=== PATIENT | male | born 1935 | race Caucasian/White ===

== ENCOUNTER 2024-11-25 11:49 | Emergency (ER) | payer OTHER, SELFPAY ==
[2024-11-25 11:50] VITALS: BP 168/98
--- NOTE | 2024-11-25 13:02 | ED.GENMED ---
History of Present Illness
General
Chief Complaint: Dental Problem
Source: patient and spouse
Exam Limitations: none
Time Seen by Provider: 11/25/24 12:52
History of Present Illness
History of Present Illness:
See MDM
Past History
Past History
ED Past Medical History: CAD, HTN, Hypercholesterolemia and [place]
ED Past Surgical History: Other (Melanoma removed)
Social History
Tobacco: Non-smoker
Alcohol: None
Drug: None
Personal:
Living: with family
Phy Exam
Physical Exam
Physical Exam:
See MDM
Course
Orders/Labs/Results
Orders:
Orders
11/25/24 13:00
Amoxicillin [Amoxil] 500 mg PO NOW STA
Ibuprofen [Motrin] 400 mg PO NOW STA
Oxycodone [Roxicodone] 5 mg PO NOW STA
Vital Signs
Initial and Last Documented VS:
Initial Vital Signs
Temp Pulse Resp BP Pulse Ox
97.6 F 82 16 168/98 97
11/25/24 11:50 11/25/24 11:50 11/25/24 11:50 11/25/24 11:50 11/25/24 11:50
Last Documented Vital Signs
Temp Pulse Resp BP Pulse Ox
97.6 F 82 16 168/98 97
11/25/24 11:50 11/25/24 11:50 11/25/24 11:50 11/25/24 11:50 11/25/24 11:50
MDM/Problems Addressed
Differential Diagnosis Includes:
HPI and MDM Narrative:
89-year-old male presenting with right lower dental pain. He noticed the pain yesterday. Tylenol is not helping. He did fracture his tooth a few months ago. Patient states he came to the emergency department with the understanding that we could
pull his tooth out.
On exam, he is well-appearing nontoxic. He does have a fractured tooth to his right lower molar. There is no surrounding abscess. Will start amoxicillin and pain medicine but discussed outpatient dentistry to remove it
Physical exam
General: Well appearing and non-toxic
HEENT: protecting airway. Right lower molar dental fracture. No surrounding abscess
Neck: appears supple
CV: No evidence of cyanosis
Resp: No accessory muscle use
Abd: Non-distended
Extremities: No deformities
Neuro: alert
Psych: Normal affect
Skin: Intact
Problems Addressed including Acute and Chronic Conditions affecting care:
1. Dental fracture
Acuity: acute
Prognosis: stable
Details: Will start antibiotics and pain medicine and discussed dentistry follow-up
Differential Diagnosis (but not limited to): Dental caries, fractured tooth, apical abscess
Testing considered: Facial CT but there is no obvious edema to suspect large abscess
Drug therapy (if applicable): OTC meds, please see d/c instruction regarding Rx drugs
Amount and/or Complexity of Data Reviewed
Clinical info obtained from: Patient
External data reviewed: N/A
Labs I independently reviewed (but not limited to): N/A
Radiology: N/A
Pulse Ox: not hypoxic
EKG independently reviewed: N/A
Rn Orthopaedic: N/A
Critical Care: N/A
Risk of Complication:
Social Determinants of health: Good social support
Discussed with other providers: N/A
Escalation of Care includes Admit/Obs: After being observed in the Emergency Department, pt stable for discharge.
Occasional wrong word or 'sound a like' substitutions may have occurred due to the inherent limitations of voice recognition software. Read the chart carefully and recognize, using context, where substitutions have occurred.
*Critical Care Note
Total Time (30-74mins, 75-104mins- exclusive of procedures): Not Applicable
ED Attending Note
-
Portions of this chart may have been created with voice recognition software.� Occasional wrong word or��sound alike� substitutions may have occurred due to the inherent limitations of voice recognition software.
Discharge Plan
Departure
Patient Disposition: Home (Routine Discharge)
Date of Disposition: 11/25/24
Time of Disposition: 13:05
Patient with high blood pressure during this ER visit?: Yes
Discharge Problem:
Pain, dental
Instructions: Dental Pain (DC)
Prescriptions:
New
amoxicillin 500 mg capsule
500 mg PO BID Qty: 14 0RF
oxycodone 5 mg tablet
5 mg PO Q8H PRN (Reason: Pain) Qty: 10 0RF
No Action
tamsulosin 0.4 mg Capsule
0.4 mg PO DAILY
atenolol 50 mg Tablet
50 mg PO DAILY
finasteride 5 mg Tablet
5 mg PO DAILY
ezetimibe 10 mg Tablet
10 mg PO DAILY
aspirin [Adult Aspirin Regimen] 81 mg tablet,delayed release (DR/EC)
81 mg PO DAILY Qty: 30 0RF
lisinopril 20 mg Tablet
40 mg PO DAILY Qty: 60 0RF
amlodipine 2.5 mg Tablet
2.5 mg PO DAILY Qty: 30 0RF
pantoprazole 40 mg Tablet,Delayed Release (Dr/Ec)
40 mg PO DAILY Qty: 30 0RF
cinacalcet 30 mg Tablet
30 mg PO DAILY Qty: 30 0RF
Xarelto 20 mg Tablet
20 mg PO DAILY Qty: 3 0RF
Referrals:
Tucker Lay DO [Family Provider, Family Practice]
Activity Restrictions/Additional Instructions:
Please return for any worsening symptoms.
You may return at any time if you have further concerns.
Please follow up with your dentist at the first available appointment, preferably this week.
You were given a prescription for narcotics. If you require this pain medicine, please take a daily [id number] stool softener to avoid constipation.
Thank you for choosing [facility].
Discharge Date and Time
Print Language: BENGALI
[2024-11-25] MEDS: ROXICODONE 5 MG PO (13:35)
[2024-11-25] MEDS: MOTRIN 400 MG PO (13:36)
[2024-11-25] MEDS: AMOXIL 500 MG PO (13:36)
[2024-11-25 13:47] VITALS: BP 168/99
== END 2024-11-25 13:53 | disposition home or self-care (01) ==
LOC: EMR 11:49
PROVIDERS: EMERGENCY PHYSICIAN Student in an Organized Health Care Education/Training Program; FAMILY PHYSICIAN Family Medicine
DX: K08.89 Other specified disorders of teeth and supporting structures (principal); I25.10 Atherosclerotic heart disease of native coronary artery without angina pectoris; I10 Essential (primary) hypertension; E78.00 Pure hypercholesterolemia, unspecified; I25.2 Old myocardial infarction; Z85.820 Personal history of malignant melanoma of skin
CPT/HCPCS: 99282

== ENCOUNTER 2024-12-14 23:57 | Inpatient (IN) | payer OTHER, SELFPAY ==
[2024-12-14 21:29] VITALS: BP 158/90
[2024-12-14 21:39] VITALS: BP 158/90
[2024-12-14 21:43] VITALS: BMI 21.4
[2024-12-14 22:00] VITALS: BP 132/81
[2024-12-14 22:18] LABS: Urine Albumin 3+ (Neg - Trace); Urine Bilirubin Negative (Negative); Urine Character Cloudy (Clear); Urine Color Yellow; Urine Glucose Negative (Negative); Urine Ketone 1+ (Negative); Urine Leukocyte 3+ (Negative); Urine Nitrite Negative (Negative); Urine Occult Blood 4+ (Negative); Urine Specific Gravity 1.015 (<1.030); Urine Urobilinogen Negative (Neg - 1+)
[2024-12-14 22:20] LABS: % Basophils 0.2 % (0-2); % Eosinophils 0.1 % (0-6); % Immature Granulocytes 0.3 % (0-0.5); % Lymphocytes 5.6 % (20.5-51.1); % Monocytes 8.6 % (1.7-9.3); % Neutrophils 85.2 % (42.2-75.2); Absolute Lymphocytes 0.6 10^3/uL (1.2-3.4); Absolute Neutrophils 9.7 10^3/uL (1.4-6.5); Hemoglobin 12.7 g/dL (13.0-18.0); Mean Corp Hgb Conc. 35.3 g/dL (33.0-37.0); Mean Corpuscular Hgb 30.5 pg (27.0-31.0); Mean Corpuscular Volume 86.3 fL (80.0-94.0); Mean Platelet Volume 10.1 fL (7.4-10.4); Nucleated Red Blood Cells % 0 % (-); Platelet Count 212 10^3/uL (130-400); Red Blood Cell Count 4.17 10^6/uL (4.70-6.10); Red Cell Dist. Width 12.7 % (11.5-14.5); White Blood Cell Count 11.3 10^3/uL (4.8-10.8)
[2024-12-14 22:28] LABS: Urine Bacteria Moderate (Negative); Urine Red Blood Cell 0-2 /HPF (0-2); Urine Squamous Cell 0-2 /LPF (Few); Urine White Cell >100 /HPF (0-5)
--- NOTE | 2024-12-14 22:39 | ED.GENMED ---
History of Present Illness
General
Chief Complaint: Weakness
Time Seen by Provider: 12/14/24 22:20
History of Present Illness
History of Present Illness:
,
Past History
Past History
ED Past Medical History: CAD, HTN, Hypercholesterolemia and [place]
ED Past Surgical History: Other (Melanoma removed)
Social History
Tobacco: Non-smoker
Alcohol: None
Drug: None
Personal:
Living: with family
Phy Exam
Physical Exam
Physical Exam:
GENERAL: Alert , in no apparent distress, hard of hearing
EYE: pupils equal and reactive, no photophobia
NECK: Supple, no significant adenopathy.
ENT: o/p clr, mm slightly dry, no trismus, no drool, voice clear, no signs of intraoral infection
CARDIAC: Regular rate and rhythm .
LUNGS: Clear breath sounds bilaterally, no acute respiratory distress, no wheezes/rales/rhonchi
ABDOMEN: Soft, without focal tenderness, no r/g, no cvat
NEUROLOGICAL: Alert and oriented, no focal neuro deficits, no meningismus, motor strength equal throughout, sensory intact, voice clear, pojzaz-[id number]-jjkc normal
SKIN: Warm and dry, skin intact.
MUSCULOSKELETAL: No edema, well perfused.
PSYCH: Normal and appropriate interaction.
Sepsis
Sepsis Screening
Sepsis Assessment: Sepsis
Sepsis Screen
Sepsis Screen: Sepsis
Date: 12/15/24
Time: 12:13
Course
Orders/Labs/Results
Orders:
Orders
12/14/24 22:07
Electrocardiogram (*1) Urgent
Reason for Study: Fatigue / Weakness
12/14/24 22:08
EKG- Treatment ONCE
12/14/24 22:10
Complete Blood Count/With Diff Urgent
Comprehensive Metabolic Panel Urgent
Phosphorus Urgent
Comment: ADDED
Urinalysis Reflex To Culture Urgent
Date Specimen was Collected: 12/14/24
Time Specimen was Collected: 22:07
Urine Microscopic Reflex Cult Urgent
Urine Culture Urgent
PRANAY Source: U
Specimen Description:
Date Specimen was Collected: 12/14/24
Time Specimen was Collected: 22:07
12/14/24 22:40
EKG- Treatment ONCE
12/14/24 22:46
Troponin I Urgent
12/14/24 22:52
EKG [Electrocardiogram (*1)] Urgent
Reason for Study: Atrial Fibrillation
12/14/24 22:53
Cardiac Monitoring- Treatment ONCE
EKG- Treatment ONCE
0.9% Sodium Chloride 1000 ml [Nss] 2,300 ml IV NOW STA
CefTRIAXone [Rocephin] 1,000 mg IV NOW STA
12/14/24 22:54
US Kidneys and US Bladder [US Renal With Bladder] Urgent
Comment:
Reason For Exam: uti, weakness
12/14/24 23:00
Flush (0.9% Sodium Chloride) [Flush (Nss)] See Dose Instructions IV PER PROTOCOL
12/14/24 23:15
Sterile Water [Sterile Water For Injection] 10 ml .ROUTE .[facility]
12/14/24 23:18
Sterile Water [Sterile Water For Injection] 10 ml IV NOW STA
12/14/24 23:29
Lactic Acid Q4H
Comment: CANCEL 2nd LACTIC ACID IF 1st LACTIC ACID IS LESS THAN 2
Blood Culture Q30M
PRANAY Source: Blood/Venous
Specimen Description:
12/14/24 23:30
Blood Culture Q30M
PRANAY Source: Blood/Venous
Specimen Description:
12/14/24 23:32
Admit/Transfer Patient As Directed
Co-Sign Provider:
Level of Care: Inpatient admission
Assign to:: Medical/Surgical
Physician / Group: Adebamiro
Diagnosis: urosepsis
Reason for Hospitalization: urosepsis
Expected length of stay greater than two midnights?: Yes
ELOS- Estimated Length of Stay in days: 2
I certify the patient meets the requirements for IP care: Yes
PRN Pain Medication Management As Directed
May give lesser potent ordered pain med per pt: Yes
preference::
Protocol:: Medication orders for pain may be administered in a
manner that supports deferring to patient preference
when the pt is:
- Requesting an ordered lesser potent pain medication.
Least to most potent pain medications are defined
as: acetaminophen < NSAID < tramadol < opioids
(morphine, oxycodone, hydromorphone).
- Requesting a lesser dose of the same medication IF
ORDERED.
- Requesting a less intrusive route of administration
if both routes are prescribed by the provider (PO <
IV).
12/14/24 23:34
Code Status As Directed
Resuscitation Status: Full Code
12/14/24 23:45
Add On- LAB Stat
Tests Added?: serum phosphorus
12/15/24 00:45
Acetaminophen [Tylenol] 650 mg PO Q4HPRN PRN
Bisacodyl [Dulcolax] 10 mg RECTAL [id number] PRN
Docusate W/Senna [Senokot-S] 1 tablet PO BIDPRN PRN
Heparin 5,000 units SC Q8
Lactated Ringers [Lr] 1,000 ml IV 75 mls/hr
Ondansetron Injectable [Zofran] 4 mg IV Q6HPRN PRN
Polyethylene Glycol Powder [Miralax] 17 grams PO DAILYPRN PRN
12/15/24 00:45
Activity As Directed
Activity Level: With Assistance
Bladder Scan As Directed
Follow Bladder Retention/Intermittent Cath Algorithm?: Yes
PRN if no void in __ hours: 6
Frequency: Per Retention Algorithm
If Bladder Scan Result >: 400
then:: Straight cath
Straight Cath As Directed
Frequency: Per Retention Algorithm
Additional Instructions: straight cath as needed per acute urinary retention algorithm for 24 hrs
Additional Instructions: for bladder scan greater than 400 mL
Vital Signs As Directed
Frequency: Per unit guidelines
Pulse Ox/spot Check [RESP] Routine
Quantity: 1
DX Deep Vein Thrombosis Video Routine
12/15/24 05:47
Basic Metabolic Panel IN AM
Complete Blood Count/No Diff IN AM
Intact PTH Includes Calcium IN AM
Phosphorus IN AM
12/15/24 08:00
Amlodipine [Norvasc] 2.5 mg PO DAILY
Aspirin Low Dose EC [Aspir Low (Enteric Coated)] 81 mg PO DAILY
Atenolol [Tenormin] 50 mg PO DAILY
Cinacalcet HCl [Sensipar] 30 mg PO DAILY
Ezetimibe [Zetia] 10 mg PO DAILY
Finasteride [Proscar] 5 mg PO DAILY
Lisinopril [Zestril] 40 mg PO DAILY
Pantoprazole [Protonix] 40 mg PO DAILY
Tamsulosin [Flomax] 0.4 mg PO DAILY
12/16/24 00:00
CefTRIAXone [Rocephin] 1,000 mg IV Q24H
Abnormal Lab Results
12/14/24 12/14/24
22:10 22:46
WBC 11.3 H 10^3/uL
(4.8-10.8)
RBC 4.17 L 10^6/uL
(4.70-6.10)
Hgb 12.7 L g/dL
(13.0-18.0)
Hct 36.0 L %
(39.0-52.0)
Absolute Neuts (auto) 9.7 H 10^3/uL
(1.4-6.5)
Absolute Lymphs (auto) 0.6 L 10^3/uL
(1.2-3.4)
Absolute Monos (auto) 1.0 H 10^3/uL
(0.1-0.6)
Neutrophils % 85.2 H %
(42.2-75.2)
Lymphocytes % 5.6 L %
(20.5-51.1)
Potassium 3.4 L mmol/L
(3.5-5.1)
Glucose 122 H mg/dl
(70-99)
Calcium 11.3 H mg/dl
(8.4-10.2)
Phosphorus 2.0 L mg/dl
(2.5-4.5)
Troponin I 0.057 H* ng/ml
Total Protein 6.2 L g/dl
(6.3-8.2)
Urine Ketones 1+ A
(Negative)
Ur Occult Blood Reflex 4+ A
(Negative)
Leukocyte Esterase Rfl 3+ A
(Negative)
Urine WBC (Reflex) >100 A /HPF
(0-5)
Urine Bacteria (Reflex) Moderate A
(Negative)
Urine Albumin (Reflex) 3+ A
(Neg - Trace)
12/14/24 22:10
12/14/24 22:10
Vital Signs
Initial and Last Documented VS:
Initial Vital Signs
Temp Pulse Resp BP Pulse Ox
99.3 F 120 16 158/90 97
12/14/24 21:29 12/14/24 21:29 12/14/24 21:29 12/14/24 21:29 12/14/24 21:29
Last Documented Vital Signs
Temp Pulse Resp BP Pulse Ox
98.5 F 68 18 130/71 96
12/15/24 07:14 12/15/24 07:14 12/15/24 07:14 12/15/24 07:14 12/15/24 07:14
*Pulse Oximetry
SaO2: 97
Oxygen Mode of Delivery: Room air
*Critical Care Note
Total Time (30-74mins, 75-104mins- exclusive of procedures): 45
Update Note
Update Note:
Note:
CHIEF COMPLAINT(S)
Generalized weakness and inability to stand.
HISTORY OF PRESENT ILLNESS
The patient is an 89-year-old male with a history of hypertension presenting with generalized weakness and inability to stand. Earlier today, the patient was reportedly able to walk downstairs and engage in usual activities. Later, he developed a
slight fever and required assistance to get up after experiencing weakness, particularly in the legs. He also experienced a fall while attempting to use the commode. The patient underwent a dental extraction for an infected tooth approximately one
week ago. He reports episodes of diarrhea managed with loperamide but subsequent constipation leading to the use of an enema today, inducing bowel movement. There is a history of urinary urgency and frequency over the past week, with difficulty
urinating, occurring approximately every 10 minutes. The patient denies any chest pain, respiratory symptoms, or abdominal pain at present, although he experienced abdominal cramping earlier today.
ADDITIONAL HISTORY OBTAINED FROM SOURCES OTHER THAN THE PATIENT
According to the family, the patient needed assistance to move back to the bed and has had difficulty standing on his own.
SOCIAL HISTORY
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 His background in [place] is noted, but no substance use or specific social stressors were reported.
MEDICATIONS
The patient is on medication for hypertension, high cholesterol, and gastroesophageal reflux disease (GERD).
PHYSICAL EXAM
- General: Alert and oriented but confused with the date.
- Head and Neck: Mouth examination conducted, appears normal.
- Abdomen: No tenderness noted.
- Genitourinary: Long-standing right inguinal hernia presence.
- Musculoskeletal: Demonstrates some strength in lower extremities.
- Neurological: Able to squeeze hands with force, but generalized weakness reported.
PLAN
Further laboratory results and tests will be reviewed to assess for potential infections such as a urinary tract infection or kidney infection. The plan will be discussed after reviewing diagnostic findings.
DIFFERENTIAL DIAGNOSIS
The Differential Diagnosis includes, in no particular order and is not limited to:
1. Urinary tract infection
2. Acute kidney infection (pyelonephritis)
3. Infection secondary to recent dental procedure
4. Adverse drug reaction
5. Electrolyte imbalance
6. Diabetes-related complication
7. Acute prostatitis
8. Neurological event (e.g., transient ischemic attack)
9. Dehydration
10. Medication-induced weakness or fatigue
10:55 PM labs consistent with UTI, white blood cell count elevation, mild anemia and hypokalemia. Clinically suspect urosepsis, lactic and blood cultures pending. Antibiotics and IV fluids ordered, will discuss with hospitalist and update family
now. Blood pressure remained stable. I did order an ultrasound to rule out obstruction although I think this is extremely unlikely, pending at time of signout to hospitalist.
ECG nsr, nl axis, rbbb, no ischemia
12:24 AM I was just handed the preliminary radiology report for the ultrasound which states 'moderate right hydronephrosis. The ureters are difficult to characterize sonographically. No definitive stone identified. Bilateral ureteral jets
identified. Unclear etiology for the patient's presumed obstruction consider CT if indicated as an obstructed system with infection has a higher incidence of urosepsis. '. Given this report, I promptly ordered a noncontrast CT. I then contacted
the hospitalist describing this ultrasound report, the pending CT, and consideration for urology consultation if source of obstruction such as stone identified.
1:23 AM I just received verbal report from vision radiologist the patient has an 8 x 9 x 12 mm stone in the proximal ureter on the right. This was discussed via [place] text with the hospitalist. Either he or I will speak with urology tonight.
210AM I texted both DR Gaona and Dr Harper, and then spoke with Dr Harper via phone...aware pt with urosepsis with obstructing stone, will need bedside consult tonight. He will continue his communication with Dr Gaona given pt is admitted. I then
updated Dr Gaona of plan via tt.
ED Attending Note
-
Portions of this chart may have been created with voice recognition software.� Occasional wrong word or��sound alike� substitutions may have occurred due to the inherent limitations of voice recognition software.
Discharge Plan
Departure
Patient Disposition: Admit
Date of Disposition: 12/14/24
Time of Disposition: 22:55
Admit to: Telemetry
Presentation/result/management discussed w/ accepting MD/DO: Hospitalist
Condition: Fair
Discharge Problem:
urosepsis
Interventions
Interventions:
*Risk Screen - Suicide Last Done: 12/14/24 21:45
*General Assessment Last Done: 12/14/24 21:44
*Neglect/Abuse Screening Last Done: 12/14/24 21:45
*ED- Fall Risk Assessment Last Done: 12/14/24 21:43
*ED COVID-19 Vaccine History Last Done: 12/15/24 00:00
*Nursing Disposition Last Done: 12/15/24 00:38
ED- Cardiac Assessment Last Done: 12/14/24 21:46
ED- Neurological Assessment Last Done: 12/14/24 21:46
ED- Pulmonary Assessment Last Done: 12/14/24 21:46
Discharge Date and Time
Discharge Date/Time: 12/15/24 00:39
[2024-12-14 22:41] LABS: ALT (SGPT) 13 U/L (0-50); AST (SGOT) 23 U/L (17-59); Albumin 3.6 g/dl (3.5-5.0); Alkaline Phosphatase 67 U/L (38-126); Blood Urea Nitrogen 17 mg/dl (9-20); Calcium 11.3 mg/dl (8.4-10.2); Carbon Dioxide 26 mmol/L (22-30); Chloride 105 mmol/L (98-107); Estimated Creatinine Clearance 43 ml/min; Glucose 122 mg/dl (70-99); Potassium 3.4 mmol/L (3.5-5.1); Sodium 135 mmol/L (135-145); Total Bilirubin 1.3 mg/dl (0.2-1.3); Total Protein 6.2 g/dl (6.3-8.2); eGFR 58.53
--- NOTE | 2024-12-14 22:59 | HPS.HSE ---
Family Physician
-
Family Physician: NOT KNOW UNKNOWN - PT DOES
Chief Complaint
-
Weakness
History of Present Illness
This is a 89-year-old male with past medical history of hypertension, hyperlipidemia, hyperparathyroidism presenting to the emergency department with approximately 1 day history of weakness.
According to patient and family developed some weakness daily today and experienced a fall while attempting to use the commode. He had recently underwent dental extraction for an infected tooth approximately 1 week ago. Prior to the extraction
patient was on amoxicillin for about 4 days. He reported that this was associated with some weakness. He reports episodes of diarrhea and intermittent constipation leading to the use of an enema today in. Since the tooth extraction he has not had
any issues to which he is oral cavity.
Family reported that he has been having some increased urinary urgency and frequency for at least 3 to 4 days. He had an attempted straight cath 3 days ago with development of transient hematuria that resolved. However since then he has been
having urinary urgency. Family reported that however today the patient had a fever that was as high as 101.7 at home. He had some chills.
In the past patient said history of urinary tract infections, history of kidney stones as well as diagnosis of BPH for which he is currently on medication. He also had episode of urinary retention with a very brief episode where he did require
straight cath but that was a few years ago. He denies any recent hospitalizations. No known sick contacts.
He denies any flank pain and nausea or vomiting. Patient has decreased p.o. intake and family are trying to get him to hydrate himself but patient is not tolerating p.o. at home.
He has not had any cough shortness of breath or dyspnea on exertion. He has not had any chest pain. Denies any nausea or vomiting.
Here in the emergency department he had a low-grade temp of 99.3, he was tachycardic to 131, blood pressure was 132/81.
His white count 11.3 with normal hemoglobin and platelet count. Potassium was 3.4 rest of the electrolytes were within the normal range. His BUN and creatinine slightly increased from prior at 17 and 1.2. Calcium was 11.3.
Medical History
Past Medical History
Past Medical History: Reports Other (atrial fibrillation no AC, CAD with stent more than 10 years ago, hypertension, hypercholesterolemia, melanoma, BPH)
Past Surgical History: Reports None
Social History
Tobacco: Non-smoker
Alcohol: None
Drug: None
Family History
Family History: Not pertinent
Allergies / Home Medications
Allergies reflects when Allergies were last updated in [facility].
Home Medications with original date entered in [facility]
Allergy/Medication List:
Allergies
Allergy/AdvReac Type Severity Reaction Status Date / Time
No Known Allergies Allergy Verified 11/25/24 11:51
Home Medications
atenolol 50 mg tablet 50 mg PO DAILY Blood pressure 01/12/22
ezetimibe 10 mg tablet 10 mg PO DAILY High cholesterol 01/12/22
finasteride 5 mg tablet 5 mg PO DAILY Urinary issue 01/12/22
tamsulosin 0.4 mg capsule 0.4 mg PO DAILY Urinary issue 01/12/22
amlodipine 2.5 mg tablet 2.5 mg PO DAILY #30 tabs 06/07/22
aspirin 81 mg tablet,delayed release (Adult Aspirin Regimen) 81 mg PO DAILY #30 tabs 06/07/22
cinacalcet 30 mg tablet 30 mg PO DAILY #30 tabs 06/07/22
lisinopril 20 mg tablet 40 mg (2 x 20 mg) PO DAILY #60 tabs 06/07/22
pantoprazole 40 mg tablet,delayed release 40 mg PO DAILY #30 tabs 06/07/22
oxycodone 5 mg tablet 5 mg PO Q8H PRN Pain #10 tabs 11/25/24
Review of Systems
-
Constitutional: Reports Fever
EENT: Reports No Symptoms
Respiratory: Reports No Symptoms
Cardiac: Reports No Symptoms
Abdomen/GI: Reports No Symptoms
: Reports Difficulty Voiding and Urgency
Musculoskeletal: Reports No Symptoms
Skin: Reports No Symptoms
Neurological: Reports Weakness (Generalized)
Endocrine: Reports No Symptoms
Hematologic/Lymphatic: Reports No Symptoms
Psych: Reports No Symptoms
Physical Exam
Vital Signs
Vital Signs
Temp Pulse Resp BP Pulse Ox
99.3 F 131 22 132/81 97
12/14/24 21:29 12/14/24 22:15 12/14/24 22:15 12/14/24 22:00 12/14/24 22:39
Physical Exam
General: Well Developed, Well Nourished and No Apparent Distress
HEENT: NormoCephalic, Moist mucous membranes and Atraumatic
Respiratory: Clear
Cardiac: S1/S2 and Regular Rhythm; No Murmur or Rub
GI: Soft, Non Tender, Non Distended and Normal Bowel Sounds; No Organomegaly
Rectal: Deferred by Provider
Musculoskeletal: No Clubbing, No Cyanosis and No Edema
Skin: Rash
Neuro: Nonfocal/grossly intact
Hematologic/Lymphatic: No Lymphadenopathy
Psych: Calm
Laboratory Results
-
12/14/24 22:10
12/14/24 22:10
Laboratory Results
Total Bilirubin 1.3 mg/dl (0.2-1.3) 12/14/24 22:10
AST 23 U/L (17-59) 12/14/24 22:10
ALT 13 U/L (0-50) 12/14/24 22:10
Alkaline Phosphatase 67 U/L (38-126) 12/14/24 22:10
Data Reviewed
-
Ultrasound: Report Reviewed by me
Lab Data: Labs Reviewed by me
Old Records: Reviewed
Impression/Plan
-
IMPRESSION:
89 y.o, history of BPH, nephrolithiasis, hyperparathyroidism, hyperlipidemia and hypertension who presents to the emergency department with urgency, difficulty urinating, fever, found to have a positive UA. He also has bilateral lower extremity
weakness, decreased appetite and p.o. intake. He had a temp of 101.7 at home but currently is temp was 99.3 in the ED. He is tachycardic but otherwise hemodynamically stable. Lactic acid is pending. Does meet sepsis criteria
PLAN:
UTI, possible pyelonephritis - likley on the basis of bph versus stones given h/o nephrolithiasis and hyperparathyroidism
- admit to med/surg
- imaging is pending but no evidence of acute retention
- blood and urine cultures
- IV ceftriaxone for now
- continue iv hydration with 75ml/hr ns after sepsis bolus
- monitor i/os and b/s for retention
- PT eval
BPH
- continue finasteride/tamsulosin
HTN
- continue lisinopril with hold parameters
- continue atenolol 50 daily
Hyperparathyroidism
- continue cinacalcet
- IV fluids
AFIB - no longer on AC for over a year due in part to hematuria on ac
- continue atenolol
DVT PPX - heparin sq (on hold for stent, please restart later today)
code status - Full Code
UPDATE - CT scan did show an obstructing R ureteral stone. Urology consulted and s/p emergent R ureteral stent placement.
[2024-12-14 23:00] VITALS: BP 135/66
[2024-12-14] MEDS: NSS 2300 ML IV (23:06)
[2024-12-14] MEDS: ROCEPHIN 1000 MG IV (23:17)
[2024-12-14] MEDS: STERILE WATER FOR INJECTION 10 ML IV (23:18)
[2024-12-14 23:33] LABS: Troponin I 0.057 ng/ml
[2024-12-14 23:49] LABS: Lactic Acid 0.8 mmol/L (0.7-2.0)
[2024-12-15] VITALS (12 sets, daily range): BP systolic 117–145; BP diastolic 50–86; PULSE 71; BMI 20.3
[2024-12-15] MEDS: LR 1000 IV (00:58)
[2024-12-15] MEDS: HEPARIN 5000 UNITS SC (01:49)
[2024-12-15] MEDS: POTASSIUM PHOSPHATE 259.0909 MEQ IV (01:49)
--- NOTE | 2024-12-15 02:37 | CONS.URO ---
Consultation
-
Date/Time Consultation Performed: 12/15/24 0233
Requesting Provider: Neyda [ED]
Performing Provider: Leroy
Reason for Consultation: right ureteral stone and sepsis
Medical History
History of Present Illness
ED not: 'The patient is an 89-year-old male with a history of hypertension presenting with generalized weakness and inability to stand. Earlier today, the patient was reportedly able to walk downstairs and engage in usual activities. Later, he
developed a slight fever and required assistance to get up after experiencing weakness, particularly in the legs. He also experienced a fall while attempting to use the commode. The patient underwent a dental extraction for an infected tooth
approximately one week ago. He reports episodes of diarrhea managed with loperamide but subsequent constipation leading to the use of an enema today, inducing bowel movement. There is a history of urinary urgency and frequency over the past week,
with difficulty urinating, occurring approximately every 10 minutes. The patient denies any chest pain, respiratory symptoms, or abdominal pain at present, although he experienced abdominal cramping earlier today.'
following transfer to 2120, report of CT was conveyed to Dr Faye, indicating presence of a 12 mm, obstructing proximal right ureteral stone 'with urosepsis'
patient denies prior stone hx though record indicates a previous h/o left urolithiasis during 2021
Past Medical History
Past Medical History: Other (1. Non-ST elevation myocardial infarction. 2. Hematuria. 3. High calcium level. 4. Prostatic enlargement. 5. Atrial fibrillation. 6. High cholesterol. 7. Hypertension. )
Past Surgical History: Cardiac (PTCA with stent > 10 years ago)
Allergies/Home Medications
Allergies
Allergy/AdvReac Type Severity Reaction Status Date / Time
No Known Allergies Allergy Verified 11/25/24 11:51
Home Medications
�Medication �Instructions �Recorded �Confirmed �Type
atenolol 50 mg tablet 50 mg PO DAILY Blood pressure 01/12/22 12/14/24 History
ezetimibe 10 mg tablet 10 mg PO DAILY High cholesterol 01/12/22 12/14/24 History
finasteride 5 mg tablet 5 mg PO DAILY Urinary issue 01/12/22 12/14/24 History
tamsulosin 0.4 mg capsule 0.4 mg PO DAILY Urinary issue 01/12/22 12/14/24 History
amlodipine 2.5 mg tablet 2.5 mg PO DAILY #30 tabs 06/07/22 12/14/24 Rx
aspirin 81 mg tablet,delayed 81 mg PO DAILY #30 tabs 06/07/22 12/14/24 Rx
release (Adult Aspirin Regimen)
cinacalcet 30 mg tablet 30 mg PO DAILY #30 tabs 06/07/22 12/14/24 Rx
lisinopril 20 mg tablet 40 mg (2 x 20 mg) PO DAILY #60 tabs 06/07/22 12/14/24 Rx
pantoprazole 40 mg tablet,delayed 40 mg PO DAILY #30 tabs 06/07/22 12/14/24 Rx
release
oxycodone 5 mg tablet 5 mg PO Q8H PRN Pain #10 tabs 11/25/24 12/14/24 Rx
Physical Exam
Vital Signs
Vital Signs
Temp Pulse Resp BP Pulse Ox
98.6 F 80 19 137/72 97
12/15/24 01:03 12/15/24 01:03 12/15/24 01:03 12/15/24 01:03 12/15/24 01:03
Physical Exam
elderly male in bed
NAD
talkative
HEENT: Normocephalic
GI: Soft
Genito-urinary: Costovertebral Angle Tend (mild, right)
Skin: Warm
Neuro: Awake
Psych: Calm
Assessment / Plan
-
Right Ureteral STone: 14 mm, proximal, obstructing
elevated WBCs
Left renal stones: two, ~ 5 mm, lower pole, non-obstructing
Plan: emergently to OR for right ureteral stenting
Data Reviewed
-
CT Scan: Image personally visualized and interpreted
Lab Data: Labs Reviewed
Old Records: Reviewed
--- NOTE | 2024-12-15 02:56 | PTCARENOTE ---
pt chg wiped and taken to or. report given to senior geotechnical engineer
--- NOTE | 2024-12-15 05:20 | PTCARENOTE ---
pt back from [facility]- ax3- no pain vitals wnl . having bloody urine about 100 ml at a time frequently
[2024-12-15 06:32] LABS: Hematocrit 34.2 % (39.0-52.0); Hemoglobin 11.7 g/dL (13.0-18.0); Mean Corp Hgb Conc. 34.2 g/dL (33.0-37.0); Mean Corpuscular Hgb 30.2 pg (27.0-31.0); Mean Corpuscular Volume 88.4 fL (80.0-94.0); Mean Platelet Volume 10.1 fL (7.4-10.4); Platelet Count 207 10^3/uL (130-400); Red Blood Cell Count 3.87 10^6/uL (4.70-6.10); Red Cell Dist. Width 12.8 % (11.5-14.5); White Blood Cell Count 10.3 10^3/uL (4.8-10.8)
[2024-12-15 06:47] LABS: Blood Urea Nitrogen 18 mg/dl (9-20); Calcium 10.6 mg/dl (8.4-10.2); Carbon Dioxide 24 mmol/L (22-30); Chloride 107 mmol/L (98-107); Estimated Creatinine Clearance 44 ml/min; Glucose 119 mg/dl (70-99); Phosphorus 3.4 mg/dl (2.5-4.5); Potassium 3.7 mmol/L (3.5-5.1); Sodium 138 mmol/L (135-145); eGFR > 60.00
[2024-12-15] MEDS: TENORMIN 50 MG PO (08:16)
[2024-12-15] MEDS: ZETIA 10 MG PO (08:16)
[2024-12-15] MEDS: FLOMAX 0.4 MG PO (08:16)
[2024-12-15] MEDS: SENSIPAR 30 MG PO (08:16)
[2024-12-15] MEDS: NORVASC 2.5 MG PO (08:16)
[2024-12-15] MEDS: PROTONIX 40 MG PO (08:16)
[2024-12-15] MEDS: PROSCAR 5 MG PO (08:16)
[2024-12-15] MEDS: ZESTRIL 40 MG PO (08:16)
[2024-12-15] MEDS: ASPIR LOW (ENTERIC COATED) 81 MG PO (08:16)
--- NOTE | 2024-12-15 11:34 | CM ---
Addendum entered by Juan Carlos Rodriguez 12/15/24 14:21:
PT and OT evaluations note - home PT/OT recommended. Both pt and his family are aware and they requested [facility]. A referral to [facility] made.
D/C plan: most with VN services and family support
Original Note:
CM following re: discharge planning.
Reviewed pt's chart, met with pt. pt's spouse and daughter at bedside.
Pt is an 89 year old male, admitted with primary dx of UTI, possible pyelonephritis.
Pt reports he lives with spouse 2SH, 1 step to enter, has 2 supportive children. Pt described himself as independent in all areas TA. No DME, VN or SNF history. Pt expressed his desire to return back home a discharge and will accept VN services if
indicated.
PT and OT will evaluate the pt to determine a level of care at discharge.
Pharmacy: [facility] [place]
D/C plan: most likely home with VN services and family support. PT and OT evaluating the pt.
CM will follow with discharge plan updates as hospitalization progresses
--- NOTE | 2024-12-15 13:14 | W.PN.HOSP.TC ---
Today's Communication/Plan
-
see outlined plan below
Assessment / Plan
Assessment / Plan
Assessment:
Acute complicated UTI
- CT: Calculus measuring up to 1.2 cm in the proximal right ureter with moderate right hydroureteronephrosis and perinephric stranding. Cannot exclude urinary tract infection. Small nonobstructing left renal calculi. Likely small simple left renal
cyst. Moderately enlarged prostate. Mild urinary bladder wall thickening which may be on the basis of bladder outlet obstruction, incomplete distention or less likely cystitis. 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
- s/p R ureteral stenting 12/15 by Urology
- continue Rocephin, day 1
- follow cultures
- pain control, anti-emetics
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
- observe
BPH
- continue finasteride/tamsulosin
Essential HTN
- continue lisinopril with hold parameters
- continue atenolol 50 daily
Hyperparathyroidism
- continue cinacalcet
Parox A. Fib
- continue Atenolol
- no OAC due to history of chronic hematuria
AFIB - no longer on AC for over a year due in part to hematuria on ac
- continue atenolol
DVT ppx: SCDs until hematuria improves
Code: Full
Anticipated Discharge: > 48 hours
Subjective/Interval History
-
Date of Service: December 15, 2024
resting comfortably, no complaints at present
Objective Data
-
Labs:
Laboratory Results
12/15/24
05:47
WBC 10.3
Hgb 11.7 L
Hct 34.2 L
Plt Count 207
Sodium 138
Potassium 3.7
Chloride 107
Carbon Dioxide 24
BUN 18
Creatinine 1.1
Glucose 119 H
Calcium 10.6 H
Vital Signs:
Vital Signs
Temp Pulse Resp BP Pulse Ox
98.5 F 68 18 130/71 96
12/15/24 07:14 12/15/24 07:14 12/15/24 07:14 12/15/24 07:14 12/15/24 07:14
I&O
12/14/24 12/15/24 12/16/24
06:59 06:59 06:59
Intake Total 560 / 560
Output Total 300 / 300 100 / 100
Balance 260 / 260 -100 / -100
Physical Exam
-
General: No Apparent Distress
HEENT: Normocephalic and Atraumatic
Respiratory: Negative Wheezes
Cardiac: Regular Rhythm and S1/S2
GI: Soft and Nontender
Genito-urinary: No Costovertebral Tender
Neuro: AO x 3
Psych: Calm
Data Reviewed
-
Total Time Spent with Patient (in minutes): 44
Labs: Labs Reviewed by me
[2024-12-15] MEDS: TYLENOL 650 MG PO ×2 (14:06→19:54)
--- NOTE | 2024-12-15 15:21 | VNURNOTE ---
Home Health Liaison met with patient and spouse at bedside to discuss [facility] nurse/therapy, visits, schedule and homebound status. They are agreeable and understand that visits at home will be 2-3 x per week to assess and teach medical management.
Patient is aware that [facility] will contact them for start of care in 1-2 days after discharge from .
[facility] referral completed in [facility].
[2024-12-15] MEDS: FLUSH (NSS) 2 FLUSH IV (22:58)
[2024-12-15] MEDS: ROCEPHIN 1000 MG IV (23:06)
--- NOTE | 2024-12-16 01:16 | PTCARENOTE ---
Pt. waking up a few times throughout the night disoriented, agitated when being assisted, not following commands consistently, gait unsteady when walking with walker to the bathroom. Pt. eventually verbalizes that he's in the hospital after a few
minutes of being awake but initially wakes up disoriented/confused. Bed alarm in place and working. Will monitor.
[2024-12-16 07:00] VITALS: BP 146/69
[2024-12-16 07:28] LABS: Hematocrit 35.8 % (39.0-52.0); Hemoglobin 12.1 g/dL (13.0-18.0); Mean Corp Hgb Conc. 33.8 g/dL (33.0-37.0); Mean Corpuscular Hgb 30.6 pg (27.0-31.0); Mean Corpuscular Volume 90.6 fL (80.0-94.0); Mean Platelet Volume 10.2 fL (7.4-10.4); Platelet Count 223 10^3/uL (130-400); Red Blood Cell Count 3.95 10^6/uL (4.70-6.10)
[2024-12-16] MEDS: NORVASC 2.5 MG PO (07:58)
[2024-12-16] MEDS: SENSIPAR 30 MG PO (07:59)
[2024-12-16] MEDS: TENORMIN 50 MG PO (07:59)
[2024-12-16] MEDS: ZETIA 10 MG PO (07:59)
[2024-12-16] MEDS: ZESTRIL 40 MG PO (07:59)
[2024-12-16] MEDS: PROTONIX 40 MG PO (07:59)
[2024-12-16] MEDS: FLOMAX 0.4 MG PO (07:59)
[2024-12-16] MEDS: ASPIR LOW (ENTERIC COATED) 81 MG PO (07:59)
[2024-12-16] MEDS: PROSCAR 5 MG PO (07:59)
[2024-12-16 08:01] LABS: Blood Urea Nitrogen 30 mg/dl (9-20); Calcium 10.9 mg/dl (8.4-10.2); Carbon Dioxide 27 mmol/L (22-30); Chloride 106 mmol/L (98-107); Estimated Creatinine Clearance 41 ml/min; Glucose 105 mg/dl (70-99); Potassium 3.9 mmol/L (3.5-5.1); Sodium 139 mmol/L (135-145); eGFR 58.53
[2024-12-16 08:53] LABS: Intact PTH 211.4 pg/ml (13.6-85.8)
--- NOTE | 2024-12-16 10:33 | W.PN.URO.CBU ---
Today's Communication / Plan
-
home when ok by hospitalist
Assessment / Plan
-
home on targeted abs stent and stone addressed in 2- 4 weeks
Diagnosis
-
Date of Service: December 16, 2024
-
Patient Diagnosis:sepsis secondary to impassable stone
Post Op Day:
Subjective
-
much better tolerating stent no fevers
Objective
-
Vital Signs
Temp Pulse Resp BP Pulse Ox
97.5 F 61 16 146/69 98
12/16/24 07:00 12/16/24 07:00 12/16/24 07:00 12/16/24 07:00 12/16/24 07:00
Intake and Output
12/15/24 12/16/24 12/17/24
06:59 06:59 06:59
Intake Total 560 / 560 660 / 660
Output Total 300 / 300 925 / 925
Balance 260 / 260 -265 / -265
Intake:
Oral fluids 660 / 660
IV fluids (Total) 300 / 300
IV piggybacks 260 / 260
Output:
Urine, Voided 300 / 300 925 / 925
Other:
Number of approximated SMALL 6
amounts of urine
How many times incontinent 1
SATURATED amount urine
Laboratory Results
12/16/24 07:04
12/16/24 07:04
Review of Systems
-
: Frequency
Physical Exam
-
General - well developed, well nourished, no acute distress
Chest - clear bilaterally
Abdomen - soft, non-tender, positive bowel sounds, no CVAT, no incisional pain or distention
Genitalia - normal
Rectal - normal
Skin - warm & dry with no rash
Neuro - AOx3, no motor deficits
Extremities - no clubbing, no cyanosis, no edema
Incision - clean, dry
Dressing - clean, dry, intact
Care Review
Data Reviewed
Discussed with: Hospitalist and Family
CT Scan: Image Pers Reviewed
--- NOTE | 2024-12-16 11:49 | W.PN.HOSP.TC ---
Today's Communication/Plan
-
VN ordered
IV Rocephin pending final urine culture
Assessment / Plan
Assessment / Plan
Assessment:
Acute complicated UTI
- CT: Calculus measuring up to 1.2 cm in the proximal right ureter with moderate right hydroureteronephrosis and perinephric stranding. Cannot exclude urinary tract infection. Small nonobstructing left renal calculi. Likely small simple left renal
cyst. Moderately enlarged prostate. Mild urinary bladder wall thickening which may be on the basis of bladder outlet obstruction, incomplete distention or less likely cystitis. 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
- s/p R ureteral stenting 12/15 by Urology
- continue Rocephin, day 2
- Urine culture with gram negative bacilli
- pain control, anti-emetics
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
- observe as post-stent hematuria expected per Urology
BPH
- continue finasteride/tamsulosin
Essential HTN
- continue lisinopril with hold parameters
- continue atenolol 50 daily
Hyperparathyroidism
- continue cinacalcet
Parox A. Fib
- continue Atenolol
- no OAC due to history of chronic hematuria
AFIB - no longer on AC for over a year due in part to hematuria on ac
- continue atenolol
DVT ppx: SCDs given hematuria
Code: Full
Anticipated Discharge: Within 24 hours
Subjective/Interval History
-
Date of Service: December 16, 2024
no complaints
Objective Data
-
Labs:
Laboratory Results
12/16/24
07:04
WBC 11.0 H
Hgb 12.1 L
Hct 35.8 L
Plt Count 223
Sodium 139
Potassium 3.9
Chloride 106
Carbon Dioxide 27
BUN 30 H
Creatinine 1.2
Glucose 105 H
Calcium 10.9 H
Vital Signs:
Vital Signs
Temp Pulse Resp BP Pulse Ox
97.5 F 61 16 146/69 98
12/16/24 07:00 12/16/24 07:00 12/16/24 07:00 12/16/24 07:00 12/16/24 07:00
I&O
12/15/24 12/16/24 12/17/24
06:59 06:59 06:59
Intake Total 560 / 560 660 / 660
Output Total 300 / 300 925 / 925
Balance 260 / 260 -265 / -265
Physical Exam
-
General: No Apparent Distress
HEENT: Normocephalic and Atraumatic
Respiratory: Negative Wheezes
Cardiac: Regular Rhythm and S1/S2
GI: Soft and Nontender
Musculoskeletal: No Edema
Neuro: AO x 3
Hematologic / Lymphatic: No Lymphadenopathy
Psych: Calm
Data Reviewed
-
Total Time Spent with Patient (in minutes): 41
Labs: Labs Reviewed by me
[2024-12-16 15:00] VITALS: BP 128/43
[2024-12-16 23:11] VITALS: BP 131/64
[2024-12-17] MEDS: STERILE WATER FOR INJECTION 10 ML IV (00:13)
[2024-12-17] MEDS: ROCEPHIN 1000 MG IV (00:13)
[2024-12-17 05:50] LABS: Hematocrit 33.8 % (39.0-52.0); Hemoglobin 11.3 g/dL (13.0-18.0); Mean Corp Hgb Conc. 33.4 g/dL (33.0-37.0); Mean Corpuscular Hgb 29.9 pg (27.0-31.0); Mean Corpuscular Volume 89.4 fL (80.0-94.0); Mean Platelet Volume 10.2 fL (7.4-10.4); Platelet Count 244 10^3/uL (130-400); Red Blood Cell Count 3.78 10^6/uL (4.70-6.10); Red Cell Dist. Width 12.7 % (11.5-14.5); White Blood Cell Count 7.6 10^3/uL (4.8-10.8)
[2024-12-17 06:12] LABS: Blood Urea Nitrogen 28 mg/dl (9-20); Calcium 10.8 mg/dl (8.4-10.2); Carbon Dioxide 25 mmol/L (22-30); Chloride 108 mmol/L (98-107); Estimated Creatinine Clearance 41 ml/min; Glucose 93 mg/dl (70-99); Potassium 3.8 mmol/L (3.5-5.1); Sodium 139 mmol/L (135-145); eGFR 58.53
[2024-12-17 07:00] VITALS: BP 150/70
[2024-12-17] MEDS: PROSCAR 5 MG PO (08:35)
[2024-12-17] MEDS: PROTONIX 40 MG PO (08:35)
[2024-12-17] MEDS: SENSIPAR 30 MG PO (08:35)
[2024-12-17] MEDS: ASPIR LOW (ENTERIC COATED) 81 MG PO (08:35)
[2024-12-17] MEDS: TENORMIN 50 MG PO (08:36)
[2024-12-17] MEDS: FLOMAX 0.4 MG PO (08:36)
[2024-12-17] MEDS: ZESTRIL 40 MG PO (08:36)
[2024-12-17] MEDS: NORVASC 2.5 MG PO (08:36)
[2024-12-17] MEDS: ZETIA 10 MG PO (08:36)
--- NOTE | 2024-12-17 08:55 | W.PN.HOSP.TC ---
Today's Communication/Plan
-
dc today
Assessment / Plan
Assessment / Plan
Assessment:
Acute complicated UTI
- CT: Calculus measuring up to 1.2 cm in the proximal right ureter with moderate right hydroureteronephrosis and perinephric stranding. Cannot exclude urinary tract infection. Small nonobstructing left renal calculi. Likely small simple left renal
cyst. Moderately enlarged prostate. Mild urinary bladder wall thickening which may be on the basis of bladder outlet obstruction, incomplete distention or less likely cystitis. 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
- s/p R ureteral stenting 12/15 by Urology
- received Rocephin, day 2 at midnight
- Urine culture with gram negative bacilli, Proteus
pt received Amoxicillin in past and caused diarrhea
- pain control, anti-emetics
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
- observe as post-stent hematuria expected per Urology
BPH
- continue finasteride/tamsulosin
Essential HTN
- continue lisinopril with hold parameters
- continue atenolol 50 daily
Hyperparathyroidism
- continue cinacalcet
Parox A. Fib
- continue Atenolol
- no OAC due to history of chronic hematuria
AFIB - no longer on AC for over a year due in part to hematuria on ac
- continue atenolol
DVT ppx: SCDs given hematuria
Code: Full
reviewed with by phone
C&S on bacteria just became available
multisensitive Proteus
More than 30 minutes spent in discharge including
Final examination of the patient
Summarizing hospital stay
Instructions for continuing care to all relevant caregivers
Preparation of discharge records, prescriptions, and referral forms
Total time spent (in minutes): 45
Anticipated Discharge: Today
Subjective/Interval History
-
Date of Service: December 17, 2024
Feels well and is anxiously awaiting dc
Objective Data
-
Labs:
Laboratory Results
12/17/24
04:56
WBC 7.6
Hgb 11.3 L
Hct 33.8 L
Plt Count 244
Sodium 139
Potassium 3.8
Chloride 108 H
Carbon Dioxide 25
BUN 28 H
Creatinine 1.2
Glucose 93
Calcium 10.8 H
Vital Signs:
Vital Signs
Temp Pulse Resp BP Pulse Ox
98.1 F 61 16 150/70 96
12/17/24 07:00 12/17/24 08:36 12/17/24 07:00 12/17/24 08:36 12/17/24 07:00
I&O
12/16/24 12/17/24 12/18/24
06:59 06:59 06:59
Intake Total 660 / 660 740 / 740
Output Total 925 / 925 900 / 900
Balance -265 / -265 -160 / -160
Review of Systems
-
History Source: Patient, Family (reviewed with ) and Coordinated Provider
Constitutional: Reports No Symptoms; Denies Fever
Respiratory: Reports No Symptoms
Cardiac: Reports No Symptoms
Abdomen/GI: Reports No Symptoms
Genitourinary: Reports No Symptoms; Denies Dysuria or Frequency
Neuro: Reports No Symptoms
Physical Exam
-
General: Well Developed, Well Nourished and No Apparent Distress
HEENT: Normocephalic, Atraumatic and Moist Mucous Membranes
Respiratory: Clear to Auscultation; Negative Wheezes, Rales or Rhonchi
Cardiac: Regular Rhythm and S1/S2
GI: Soft, Nontender and Nondistended
Genito-urinary: No Costovertebral Tender
Musculoskeletal: No Clubbing, No Cyanosis and No Edema
Skin: Warm and Dry
--- NOTE | 2024-12-17 11:00 | CM ---
Patient has been medically cleared for discharge to home with BECKY ADAMS RN, PT/OT. Patient arranging for transport home.
--- NOTE | 2024-12-17 11:24 | W.DS.TRANS ---
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
-
Discharge Instructions:
Discharge Diagnosis/Procedures Complicated Urinary Tract Infection
Diet Regular
Activity With Walker
Driving Restrictions Not until seen by your Dr
Bathing Restrictions shower chair
Blood Work CBC, CMP
Other Services VN
Instructions:
Stand-Alone Forms:
Changes to Home Medications: Yes
Discharge Medications:
DC Medications w/original date entered in [facility]
atenolol 50 mg tablet 50 mg PO DAILY Blood pressure 01/12/22
ezetimibe 10 mg tablet 10 mg PO DAILY High cholesterol 01/12/22
finasteride 5 mg tablet 5 mg PO DAILY Urinary issue 01/12/22
tamsulosin 0.4 mg capsule 0.4 mg PO DAILY Urinary issue 01/12/22
amlodipine 2.5 mg tablet 2.5 mg PO DAILY #30 tabs 06/07/22
aspirin 81 mg tablet,delayed release (Adult Aspirin Regimen) 81 mg PO DAILY #30 tabs 06/07/22
cinacalcet 30 mg tablet 30 mg PO DAILY #30 tabs 06/07/22
lisinopril 20 mg tablet 40 mg (2 x 20 mg) PO DAILY #60 tabs 06/07/22
pantoprazole 40 mg tablet,delayed release 40 mg PO DAILY #30 tabs 06/07/22
oxycodone 5 mg tablet 5 mg PO Q8H PRN Pain #10 tabs 11/25/24
cefuroxime axetil 500 mg tablet 500 mg PO BID 10 days #20 tabs 12/17/24
Home Medication Changes
Ceftin added
Pending Results: No
--- NOTE | 2024-12-17 11:34 | W.PN.URO.CBU ---
Today's Communication / Plan
-
home stentin
Assessment / Plan
-
home on targeted abs stent and stone addressed in 2- 4 weeks
Diagnosis
-
Date of Service: December 17, 2024
-
Patient Diagnosis:
Post Op Day:
Patient Diagnosis:sepsis secondary to impassable stone
Post Op Day:
Subjective
-
better min irritative sxs
Objective
-
Vital Signs
Temp Pulse Resp BP Pulse Ox
98.1 F 61 16 150/70 96
12/17/24 07:00 12/17/24 08:36 12/17/24 07:00 12/17/24 08:36 12/17/24 07:00
Intake and Output
12/16/24 12/17/24 12/18/24
06:59 06:59 06:59
Intake Total 660 / 660 740 / 740
Output Total 925 / 925 900 / 900
Balance -265 / -265 -160 / -160
Intake:
Oral fluids 660 / 660 740 / 740
Output:
Urine, Voided 925 / 925 900 / 900
Other:
Number of approximated SMALL 6
amounts of urine
Number of approximated MODERATE 4
amounts of urine
Number of unmeasured liquid
stools
Rectum 1
Laboratory Results
12/17/24 04:56
12/17/24 04:56
Review of Systems
-
: Frequency
Physical Exam
-
General - well developed, well nourished, no acute distress
Chest - clear bilaterally
Abdomen - soft, non-tender, positive bowel sounds, no CVAT, no incisional pain or distention
Genitalia - normal
Rectal - normal
Skin - warm & dry with no rash
Neuro - AOx3, no motor deficits
Extremities - no clubbing, no cyanosis, no edema
Incision - clean, dry
Dressing - clean, dry, intact
Care Review
Data Reviewed
Discussed with: Family
== END 2024-12-17 16:47 | disposition home health service (06) | DRG 854 ==
LOC: 2 NORTH 23:57
PROVIDERS: Internal Medicine; Specialist; ADMITTING PHYSICIAN Internal Medicine; ATTENDING PHYSICIAN Internal Medicine; EMERGENCY PHYSICIAN Emergency Medicine
PROC: 0T768DZ Dilation of Right Ureter with Intraluminal Device, Via Natural or Artificial Opening Endoscopic (ICD-10-PCS; 2024-12-15)
DX: A41.9 Sepsis, unspecified organism (principal); N13.6 Pyonephrosis; N20.2 Calculus of kidney with calculus of ureter; E78.00 Pure hypercholesterolemia, unspecified; I10 Essential (primary) hypertension; N40.0 Benign prostatic hyperplasia without lower urinary tract symptoms; I25.10 Atherosclerotic heart disease of native coronary artery without angina pectoris; I48.91 Unspecified atrial fibrillation; K21.9 Gastro-esophageal reflux disease without esophagitis; E21.3 Hyperparathyroidism, unspecified; N28.1 Cyst of kidney, acquired; N32.3 Diverticulum of bladder; K59.00 Constipation, unspecified; R19.7 Diarrhea, unspecified; R26.2 Difficulty in walking, not elsewhere classified; R33.9 Retention of urine, unspecified; W18.11XA Fall from or off toilet without subsequent striking against object, initial encounter; Y93.89 Activity, other specified; Y92.002 Bathroom of unspecified non-institutional (private) residence as the place of occurrence of the external cause; I25.2 Old myocardial infarction; Z85.820 Personal history of malignant melanoma of skin; Z79.82 Long term (current) use of aspirin; Z95.5 Presence of coronary angioplasty implant and graft; Z87.442 Personal history of urinary calculi; Z87.440 Personal history of urinary (tract) infections
CPT/HCPCS: 74018; 74176; 76000; 76770; 80048; 80053; 81003; 81015; 83605; 83970; 84100; 84484; 85025; 85027; 87040; 87077; 87086; 87186; 93005; 96361; 96374; 97162; 97167; 99285; C2617

== ENCOUNTER 2025-01-12 06:33 | Day surgery (SDC) | payer OTHER, SELFPAY ==
[2025-01-12] VITALS (8 sets, daily range): BP systolic 119–152; BP diastolic 61–86; BMI 20.9
== END 2025-01-12 13:55 | disposition home or self-care (01) ==
LOC: SDS 06:33
PROVIDERS: ATTENDING PHYSICIAN Specialist
DX: N20.2 Calculus of kidney with calculus of ureter (principal); Z87.440 Personal history of urinary (tract) infections
CPT/HCPCS: 52356; 74018; 76000; 82365; 87086; C1894; C2617; J1580

== ENCOUNTER 2025-01-29 15:04 | Emergency (ER) | payer OTHER, SELFPAY ==
[2025-01-29 15:17] VITALS: BP 132/70
--- NOTE | 2025-01-29 17:36 | ED.MUSCINJ ---
HPI-Injury
General
Chief Complaint: Fall
Source: patient
Exam Limitations: none
Time Seen by Provider: 01/29/25 16:27
Nursing documentation reviewed up to this point in time: agreed with
History of Present Illness-Injury
Is this injury a work related problem?: No
Is pt an associate of [facility]/[place]?: No
Initial Injury comments:
Patient to ED after trip and fall. Denies hitting his head. COmplains of pain and deformity to left 5th finger. He hit left shoulder and knee on ground in fall but reports full ROM to both, declines xray. Injury occurred today.
Past History
Past History
ED Past Medical History: CAD, HTN, Hypercholesterolemia and [place]
ED Past Surgical History: Other (Melanoma removed)
Social History
Tobacco: Non-smoker
Alcohol: None
Drug: None
Personal:
Living: with family
Review of Systems
Review of Systems
Allergies reviewed?: Yes
All Other Systems: ROS reviewed and negative except as documented in HPI and ROS
Constitutional: Reports no symptoms
EENT: Reports no symptoms
Respiratory: Reports no symptoms
Cardiac: Reports no symptoms
ABD/GI: Reports no symptoms
: Reports no symptoms
Musculoskeletal: Reports joint pain (pain and deformity to left 5th finger)
Skin: Reports no symptoms
Neurological: Reports no symptoms
Psychiatric: Reports no symptoms
Musculoskeletal Injury Exam
Musculoskeletal Injury Exam
Left Fifth Finger:
Pain with Movement?: Moderate
Tender to palpation?: Moderate
Soft tissue swelling?: Moderate
External deformity and angulation?: Moderate
Joint effusion?: None
Contusion?: Moderate
Hematoma-local bleeding into tissue?: Moderate
Strain- Sprain- Tear (Connective tissue injury)?: Moderate
Crepitus with movement?: No
Joint instability?: No
Malalignment/deformity?: No
Range of motion: Limited
Distal skin color and temperature: normal-warm & good color
Capillary Refill: normal
Normal distal neurovascular exam?: Yes
Peripheral Pulses: radial (left): 3+
Left Shoulder:
Pain with Movement?: None
Tender to palpation?: Mild
Soft tissue swelling?: None
External deformity and angulation?: None
Joint effusion?: None
Contusion?: Moderate
Hematoma-local bleeding into tissue?: Mild
Strain- Sprain- Tear (Connective tissue injury)?: None
Crepitus with movement?: No
Joint instability?: No
Malalignment/deformity?: No
Range of motion: Full
Distal skin color and temperature: normal-warm & good color
Capillary Refill: normal
Normal distal neurovascular exam?: Yes
Left Knee:
Pain with Movement?: None
Tender to palpation?: Mild
Soft tissue swelling?: None
External deformity and angulation?: None
Joint effusion?: None
Contusion?: Moderate
Hematoma-local bleeding into tissue?: Mild
Strain- Sprain- Tear (Connective tissue injury)?: None
Crepitus with movement?: No
Joint instability?: No
Malalignment/deformity?: No
Range of motion: Full
Distal skin color and temperature: normal-warm & good color
Capillary Refill: normal
Normal distal neurovascular exam?: Yes
Phy Exam
General Physical Exam
General Presentation: mild distress
General age: appears stated age
General Skin: warm and dry
General Habitus: normal
General Mental: alert
General Hydration: appears well hydrated
Neurological Exam
Neurological Exam: alert, oriented x3, CN II-XII intact and no motor deficits
Musculoskeletal Exam
Musculoskeletal Exam: neuro vasc intact and other (Full nonpainful ROM to head/neck)
Skin Exam
Skin Exam: normal color, warm/dry and no rash
Psychiatric Exam
Psychiatric Exam: normal mood/affect
Injury Course
Orders/Labs/Results
Orders:
Orders
01/29/25 15:21
CR Finger(s)/thumb Min 2 Vw Lt Urgent
Comment:
Reason For Exam: fall
01/29/25 17:32
Finger(s)/Thumb 2 View Lt [CR Finger(s)/thumb Min 2 Vw Lt] Urgent
Comment:
Reason For Exam: post reduction
01/29/25 17:57
Aluminium Finger Splint Left ONCE
Kamar Tape Left-Treatment ONCE
Procedures
Joint/Fracture Reduction
Left Fifth Finger:
Indication for procedure:: fracture, angulatioin left proximal 5th finget
Anesthesia/sedation: 1% Lidocaine and Regional block
Injury was: closed
Further treatement: needs further treatment
Post reduction exam: stable
Capillary Refill: normal
Normal distal neurovascular exam?: Yes
*Pulse Oximetry
SaO2: 98
Oxygen Mode of Delivery: Room air
Patient hypoxic: no
*Critical Care Note
Total Time (30-74mins, 75-104mins- exclusive of procedures): Not Applicable
ED Attending Note
-
Portions of this chart may have been created with voice recognition software.� Occasional wrong word or��sound alike� substitutions may have occurred due to the inherent limitations of voice recognition software.
Discharge Plan
Departure
Patient Disposition: Home (Routine Discharge)
Date of Disposition: 01/29/25
Time of Disposition: 18:03
Patient with high blood pressure during this ER visit?: No
Condition: Good
Covid-19: Not Applicable
Discharge Problem:
Finger fracture, left
Instructions: Finger fracture, Contusion (DC), Preventing falls in adults, Cold therapy for pain
Prescriptions:
No Action
tamsulosin 0.4 mg Capsule
0.4 mg PO DAILY
atenolol 50 mg Tablet
50 mg PO DAILY
finasteride 5 mg Tablet
5 mg PO HS
ezetimibe 10 mg Tablet
10 mg PO HS
aspirin [Adult Aspirin Regimen] 81 mg tablet,delayed release (DR/EC)
81 mg PO DAILY Qty: 30 0RF
amlodipine 2.5 mg Tablet
2.5 mg PO DAILY Qty: 30 0RF
pantoprazole 40 mg Tablet,Delayed Release (Dr/Ec)
40 mg PO DAILY Qty: 30 0RF
cinacalcet 30 mg Tablet
30 mg PO DAILY Qty: 30 0RF
acetaminophen 325 mg Tablet
650 mg PO Q4H PRN (Reason: pain)
hydrocortisone 2.5 % Lotion
1 applic TOPICAL DAILY
vitamin B complex Capsule
1 cap PO HS
cholecalciferol (vitamin D3) [Vitamin D3] 50 mcg (2,000 unit) Tablet
100 mcg PO HS
magnesium glycinate 100 mg Tablet
100 mg PO HS
lisinopril 20 mg tablet
20 mg PO DAILY
Referrals:
Tucker Lay DO [Family Provider, Family Practice]
Maximiliano Voss MD [Active, Orthopedics] - Call in 1-3 days for appt
Interventions
Interventions:
*Risk Screen - Suicide Last Done: 01/29/25 15:20
*General Assessment Last Done: 01/29/25 15:20
*ED COVID-19 Vaccine History Last Done: 01/29/25 15:20
*Nursing Disposition Last Done: 01/29/25 18:26
ED-Musculoskeletal Assessment Last Done: 01/29/25 18:24
ED- Neurological Assessment Last Done: 01/29/25 18:24
ED-Skin Assessment Last Done: 01/29/25 18:24
Discharge Date and Time
Discharge Date/Time: 01/29/25 19:16
Print Language: ALBANIAN
== END 2025-01-29 19:16 | disposition home or self-care (01) ==
LOC: EMR 15:04
PROVIDERS: EMERGENCY PHYSICIAN Student in an Organized Health Care Education/Training Program; FAMILY PHYSICIAN Family Medicine
DX: M79.645 Pain in left finger(s) (principal); S62.617A Displaced fracture of proximal phalanx of left little finger, initial encounter for closed fracture; I25.10 Atherosclerotic heart disease of native coronary artery without angina pectoris; I10 Essential (primary) hypertension; E78.00 Pure hypercholesterolemia, unspecified; I25.2 Old myocardial infarction; Z79.82 Long term (current) use of aspirin; Z85.820 Personal history of malignant melanoma of skin; W01.198A Fall on same level from slipping, tripping and stumbling with subsequent striking against other object, initial encounter
CPT/HCPCS: 99283; 26725; 29130; 73140

== ENCOUNTER 2025-06-18 13:40 | Inpatient (IN) | payer OTHER, SELFPAY ==
[2025-06-18] VITALS (10 sets, daily range): BP systolic 126–158; BP diastolic 66–85; BMI 22.8; BMI 21.7
[2025-06-18 10:30] LABS: Hematocrit 39.9 % (39.0-52.0); Hemoglobin 13.1 g/dL (13.0-18.0); Mean Corp Hgb Conc. 32.8 g/dL (33.0-37.0); Mean Corpuscular Volume 88.9 fL (80.0-94.0); Nucleated Red Blood Cells % 0 % (-); Platelet Count 262 10^3/uL (130-400); Red Cell Dist. Width 13.0 % (11.5-14.5)
[2025-06-18 10:52] LABS: ALT (SGPT) 11 U/L (0-50); AST (SGOT) 18 U/L (17-59); Albumin 3.8 g/dl (3.5-5.0); Alkaline Phosphatase 66 U/L (38-126); Blood Urea Nitrogen 14 mg/dl (9-20); Calcium 11.2 mg/dl (8.4-10.2); Carbon Dioxide 28 mmol/L (22-30); Chloride 106 mmol/L (98-107); Estimated Creatinine Clearance 45 ml/min; Glucose 135 mg/dl (70-99); Potassium 3.7 mmol/L (3.5-5.1); Sodium 139 mmol/L (135-145); Total Protein 6.5 g/dl (6.3-8.2); eGFR 58.17
--- NOTE | 2025-06-18 10:59 | ED.GENMED ---
History of Present Illness
General
Chief Complaint: Chest Pain
Source: patient and spouse
Exam Limitations: none
Time Seen by Provider: 06/18/25 10:19
Nursing documentation reviewed up to this point in time: agreed with
History of Present Illness
History of Present Illness:
Note:
CHIEF COMPLAINT(S)
Chest pain and excessive burping.
HISTORY OF PRESENT ILLNESS
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 The chest pain is described as a recent issue that started two days prior. The patient reported
experiencing pain in the arm, which was reminiscent of past cardiac events. He indicated that the pain persisted slightly when he reclined and improved when he sat up. The patient mentioned taking nitroglycerin sublingually to alleviate symptoms
before arriving at the emergency department, noting a slight improvement post-administration.
REVIEW OF SYSTEMS
- Cardiovascular: Chest pain, history of heart attack, arm pain.
- Gastrointestinal: Frequent burping.
PHYSICAL EXAM
General: Alert, no acute distress.
Skin: Warm, dry.
Head: Normocephalic, atraumatic.
Neck: Supple, trachea midline.
Eye Ears, Nose, Mouth, and Throat: Oral mucosa moist.
Cardiovascular: Normal peripheral perfusion, No edema.
Respiratory: Respirations are non-labored.
Gastrointestinal: Abdomen nondistended
Back: Normal range of motion, Normal alignment.
Musculoskeletal: Normal ROM, normal strength.
Neurological: Alert and oriented to person, place, time, and situation, No focal neurological deficit observed.
Psychiatric: Cooperative, appropriate mood & affect.
PROBLEM LIST
Acute:
- Chest pain
- Burping
PLAN
Conducted an EKG, which appeared normal. Blood tests were ordered to further evaluate the patients condition. Awaiting results to determine further management.
DIFFERENTIAL DIAGNOSIS
The Differential Diagnosis includes, in no particular order and is not limited to:
1. Angina
2. Myocardial infarction
3. Gastroesophageal reflux disease (GERD)
4. Esophageal spasm
5. Costochondritis
6. Pulmonary embolism
7. Aortic dissection
8. Pericarditis
9. Anxiety-related chest pain
10. Peptic ulcer disease
EKG
My independent EKG interpretation is as follows:
- Time of EK:39 a.m.
- Rhythm: Sinus rhythm with premature atrial complexes
- Notable Intervals: Right bundle branch block
- Abnormalities: No signs of ischemia
Disposition:
SUMMARY OF ENCOUNTER
The patient is an 89-year-old male presenting with chest pain and excessive burping. The patient has a past medical history significant for a myocardial infarction and reports recent onset of chest pain starting two days prior, accompanied by arm
pain similar to previous cardiac events. After taking sublingual nitroglycerin, the patient noted slight symptom improvement. An EKG was performed, showing sinus rhythm with premature atrial complexes and a right bundle branch block, with no signs
of ischemia. Dr. Doshi from cardiology evaluated the patient and diagnosed him with unstable angina, recommending a heparin drip and potential cardiac catheterization later today or tomorrow.
DISPOSITION
Admit
ASSESSMENT
Unstable angina, suspect possible cardiac catheterization needed.
EMERGENCY TREATMENTS ADMINISTERED
Nitroglycerin tablets (sublingual).
MANAGEMENT OF THE PATIENTS CARE WAS DISCUSSED WITH
Dr. Doshi, Soil Conservation Technician.
PLAN
The plan is to start the patient on a heparin drip as recommended by cardiology for management of unstable angina, with possible cardiac catheterization this afternoon or tomorrow.
INDEPENDENT REVIEW OF LABS AND INTERPRETATION OF TESTS
My independent EKG interpretation shows sinus rhythm with premature atrial complexes and a right bundle branch block, with no signs of ischemia.
MEDICAL DECISION MAKING
-Complexity of Data Reviewed:
Chronic conditions affecting care include a history of myocardial infarction. Differential Diagnosis includes angina, myocardial infarction, gastroesophageal reflux disease (GERD), esophageal spasm, costochondritis, pulmonary embolism, aortic
dissection, pericarditis, anxiety-related chest pain, and peptic ulcer disease.
-Data:
Category 1:
My independent interpretation of the EKG shows sinus rhythm with premature atrial complexes and a right bundle branch block, no ischemia noted.
Category 3:
Discussion of management with Dr. Doshi, Soil Conservation Technician, regarding starting heparin drip and potential cardiac catheterization.
DIAGNOSIS
Unstable angina (ICD-10: I20.0)
Past History
Past History
ED Past Medical History: CAD, HTN, Hypercholesterolemia and UT
ED Past Surgical History: Other (Melanoma removed)
Social History
Tobacco: Non-smoker
Alcohol: None
Drug: None
Personal:
Living: with family
Phy Exam
Physical Exam
Physical Exam:
.
Scores
Heart Score for Chest Pain Patients
STEMI patient?: No
History: Moderately Suspicious
ECG: Nonspecific Repolarization
Age: >/= 65 years
Risk Factors: >/= 3 Risk Factors or History of CAD
Troponin: >1 - <3 x Normal Limit
Heart Score for Chest Pain Patients: 7
Heart Score Risk: 72.7 % MACE over next 6 weeks
Course
Orders/Labs/Results
Orders:
Orders
06/18/25 09:37
EKG [Electrocardiogram (*1)] Urgent
Reason for Study: Chest Pain
EKG- Treatment ONCE
06/18/25 10:05
Complete Blood Count/With Diff Urgent
Comprehensive Metabolic Panel Urgent
Troponin I Urgent
06/18/25 12:32
Aspirin Chewable [Low Strength Aspirin] 324 mg PO NOW STA
06/18/25 12:49
PTT Urgent
Comment: Obtain baseline before beginning heparin infusion if not already collected
Heparin 4,000 units IV NOW STA
Pharmacy Request to Place See Dose Instructions PO NOW STA
Discontinue all Active Warfarin orders?: Yes
Nursing to Place Non Medication Order As Directed
Physician Order: PTT 6 hours after initial start of Heparin infusion
06/18/25 12:51
Nitroglycerin Sublingual [Nitrostat (Sublingual)] 0.4 mg SL NOW STA
06/18/25 12:58
Urine Culture Routine
PRANAY Source: Urine
Specimen Description:
Obtained by: Bladder
Date Specimen was Collected: 06/18/25
Time Specimen was Collected: 13:10
06/18/25 12:59
Echo 2D MMode Color/Doppler [Echo 2D MMode Color/Doppler] Routine
Reason for Study: chest pain, abnormal troponin
Cardiology Consult: Liliane Doshi
CXR2 [CR Chest - 2 Views ] Routine
Comment:
Reason For Exam: chest/back pain
06/18/25 13:00
Troponin I Urgent
Heparin 98221 Units/250 ml 25,000 units in 250 ml IV PER PROTOCOL
Weight to be used for heparin protocol in kilograms (kg):: 74
Protocol:: Cardiac Tx/Acute Coronary
PTT Goal Range to be used:: PTT 73 to 111 seconds
Order type:: Initial
INITIAL Infusion Dose (UNITS/KG/hr) & then follow protocol:: 12 units/kg/hr
Infusion Dose in UNITS/hr & then follow protocol (UNITS/hr):: 900
INFUSION RATE in mL/hr & then follow protocol (mL/hr):: 9
PTT less than or equal to 64 seconds:: Increase rate by 200 units/hr (+ 2 mL/hr)
PTT 64.1 to 72.9 seconds:: Increase rate by 100 units/hr (+ 1 mL/hr)
PTT 73 to 111 seconds:: Target Range. No change in rate.
PTT 111.1 to 130.9 seconds:: Decrease rate by 100 units/hr (- 1 mL/hr)
PTT 131 to 199.9 seconds:: HOLD for 1 hr. Then decrease rate by 200 units/hr (- 2 mL/hr)
PTT greater than or equal to 200 seconds:: HOLD for 2 hrs & Notify Provider. Then decrease by 200 units/hr (-
2 mL/hr)
Lab follow-up:: Each change, PTT q6h until 2 consecutive are therapeutic. Then PTT
daily.
Pharmacy Request to Place See Dose Instructions IV DIRECTED
Abnormal Lab Results
06/18/25
10:05
RBC 4.49 L 10^6/uL
(4.70-6.10)
MCHC 32.8 L g/dL
(33.0-37.0)
Neutrophils % 75.3 H %
(42.2-75.2)
Lymphocytes % 15.5 L %
(20.5-51.1)
Glucose 135 H mg/dl
(70-99)
Calcium 11.2 H mg/dl
(8.4-10.2)
Troponin I 0.043 H* ng/ml
06/18/25 10:05
06/18/25 10:05
Vital Signs
Initial and Last Documented VS:
Initial Vital Signs
Temp Pulse Resp BP Pulse Ox
97.6 F 64 16 150/75 98
06/18/25 09:42 06/18/25 09:42 06/18/25 09:42 06/18/25 09:42 06/18/25 09:42
Last Documented Vital Signs
Temp Pulse Resp BP Pulse Ox
97.6 F 58 20 135/77 98
06/18/25 09:42 06/18/25 12:45 06/18/25 12:45 06/18/25 13:01 06/18/25 10:59
*Pulse Oximetry
SaO2: 98
Oxygen Mode of Delivery: Room air
Patient hypoxic: no
*Critical Care Note
Total Time (30-74mins, 75-104mins- exclusive of procedures): 30
comment:
Critical care statement: A total of 30 minutes of critical care time was provided for this patient. This includes management of unstable vital signs, evaluation of the patient at bedside, reviewing the patient's pertinent medical records, discussion
with consultants, review of old EKGs and review of pertinent medical records. This time with separate from time utilized to perform the aforementioned documented procedures
ED Attending Note
-
Portions of this chart may have been created with voice recognition software.� Occasional wrong word or��sound alike� substitutions may have occurred due to the inherent limitations of voice recognition software.
Discharge Plan
Departure
Patient Disposition: Admit
Date of Disposition: 06/18/25
Time of Disposition: 12:51
Admit to: IVU
Presentation/result/management discussed w/ accepting MD/DO: Hospitalist
Patient with high blood pressure during this ER visit?: Yes
Condition: Fair
Discharge Problem:
Angina pectoris, unstable
Prescriptions:
No Action
tamsulosin 0.4 mg Capsule
0.4 mg PO DAILY
atenolol 50 mg Tablet
50 mg PO DAILY
finasteride 5 mg Tablet
5 mg PO HS
ezetimibe 10 mg Tablet
10 mg PO HS
aspirin [Adult Aspirin Regimen] 81 mg tablet,delayed release (DR/EC)
81 mg PO DAILY Qty: 30 0RF
amlodipine 2.5 mg Tablet
2.5 mg PO DAILY Qty: 30 0RF
pantoprazole 40 mg Tablet,Delayed Release (Dr/Ec)
40 mg PO DAILY Qty: 30 0RF
cinacalcet 30 mg Tablet
30 mg PO DAILY Qty: 30 0RF
acetaminophen 325 mg Tablet
650 mg PO Q4H PRN (Reason: pain)
hydrocortisone 2.5 % Lotion
1 applic TOPICAL DAILY
vitamin B complex Capsule
1 cap PO HS
cholecalciferol (vitamin D3) [Vitamin D3] 50 mcg (2,000 unit) Tablet
100 mcg PO HS
magnesium glycinate 100 mg Tablet
100 mg PO HS
lisinopril 20 mg tablet
20 mg PO DAILY
Referrals:
Tucker Lay DO [Family Provider, Family Practice]
Interventions
Interventions:
*General Assessment Last Done: 06/18/25 10:01
*ED COVID-19 Vaccine History Last Done: 06/18/25 10:01
*ED Influenza Vaccine History Last Done: 06/18/25 10:01
[facility] Fall Risk Assessment Tool Last Done: 06/18/25 10:17
*Risk Screen - Suicide (C-SSRS) Last Done: 06/18/25 10:01
ED- Cardiac Assessment Last Done: 06/18/25 10:17
Discharge Date and Time
Print Language: TAJIK
[2025-06-18 11:04] LABS: Troponin I 0.043 ng/ml
[2025-06-18] MEDS: LOW STRENGTH ASPIRIN 324 MG PO (12:39)
--- NOTE | 2025-06-18 12:54 | W.PN.UPDATE ---
Update Note
Progress Note Update
This note serves as an addendum to the H&P by route sales driver PEYTON�
Rosaura DIETERICK
HPI�
89M
PMHX Prx AF, HTN , on daily ASA
seen at ER: Arm pain improved if he beats on them
Elevated 1st TPNI
EKG shows more prominent T waves in ant leads
ER initiated Heparin gtt, NTG SL and gave
still have b/l arms pain but less after NTG
PHX
Relevant VS
Temp Pulse Resp BP Pulse Ox
97.6 F 58 20 126/78 98
06/18/25 09:42 06/18/25 12:45 06/18/25 12:45 06/18/25 12:00 06/18/25 10:59
PE
Gen: NAD , pleasant
HEENT: anicteric , [place]
Neck: supple
Lungs: CTA
Cor: RRR S1 S2
Abdo: soft men:�
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
MS: no edema
Psych:apprppriate
Relevant Data�
12/17/24 06/18/25 06/18/25
04:56 10:05 12:49
WBC 7.9
Hgb 13.1
Plt Count 262
APTT Pending
Creatinine 1.2 1.2
eGFR 58.53 58.17
Troponin I 0.043 H*
06/18/25
13:00
WBC
Hgb
Plt Count
APTT
Creatinine
eGFR
Troponin I Pending
EKG report
SINUS RHYTHM WITH PREMATURE ATRIAL COMPLEXES
RIGHT BUNDLE BRANCH BLOCK
CANNOT RULE OUT INFERIOR INFARCT , AGE UNDETERMINED
ABNORMAL ECG
WHEN COMPARED WITH ECG OF 14-Dec-2024 22:58,
SINUS RHYTHM HAS REPLACED ECTOPIC ATRIAL RHYTHM
NONSPECIFIC T WAVE ABNORMALITY NOW EVIDENT IN INFERIOR LEADS
- T WAVE INVERSION NOW EVIDENT IN ANTERIOR LEADS
Last hospitalist admission: 12/14/2024 - 12/17/2024
FINAL DIAGNOSES:
1. Complex urinary tract infection due to right ureteral stone.
2. Right ureteral stone measuring 14 mm proximal and was
obstructing.
3. Ambulatory dysfunction, most likely due to acute infection.
ASSESSMENT & PLAN
Pending Rx reconciliation
ACS - suspect NSTEMI
- atypical CP presumed Angina
- POS 1st TPN + EKG shows more prominent T waves in ant leads
- c/w ASA
- c/w Heparin gt
- SL NTG
- FU TPNI trend
- NPO for now and await Card inpit for CC
- [facility] card consulted
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
- stable baseline Cr 1.2 , eGFR hi 50s
BPH
HX Hematuria with Heparin gtt
- continue finasteride/tamsulosin
pHTN
- continue lisinopril with hold parameters
- continue atenolol 50 daily
Hyperparathyroidism
- continue cinacalcet
in NSR
HX Prx AF no longer on AC for over a year due in part to hematuria on A
- continue atenolol
DVT Px: Heparin gtt
Code: Full
IVU
--- NOTE | 2025-06-18 12:55 | HPS.HSE ---
Family Physician
-
Family Physician: Tucker Lay DO
Chief Complaint
-
Bilateral Arm Pain
History of Present Illness
Patient is a 89 y/o male past medical history of coronary artery disease, atrial fibrillation, hypertension, hyperlipidemia, hyperparathyroidism, and BPH who presents with bilateral arm pain. Patient reports pain started this morning in both of his
arms. He notes they feel heavy. He states symptoms are similar when he needed a heart stent about 10 years. He denies shortness of breath, dizziness or lower extremity edema.
Medical History
Past Medical History
Past Medical History: Reports Other
Additional Past Medical History:
Coronary Artery Disease s/p Stent
Paroxysmal Atrial Fibrillation
Essential Hypertension
Hyperlipidemia
Hyperparathyroidism
BPH
Nephrolithiasis
Melanoma
Past Surgical History: Reports Other
Additional Past Surgical History:
Cardiac Stent
Melanoma Removal
Bladder / Kidney Stone Removal
Social History
Tobacco: Non-smoker
Alcohol: None
Family History
Family History: Not pertinent
Allergies / Home Medications
Allergies reflects when Allergies were last updated in [employer].
Home Medications with original date entered in [employer]
Allergy/Medication List:
Allergies
Allergy/AdvReac Type Severity Reaction Status Date / Time
amoxicillin Allergy Diarrhea, Verified 06/18/25 09:44
difficulty
to walk
Home Medications
atenolol 50 mg tablet 50 mg PO DAILY Blood pressure 01/12/22
ezetimibe 10 mg tablet 10 mg PO HS High cholesterol 01/12/22
finasteride 5 mg tablet 5 mg PO HS Urinary issue 01/12/22
tamsulosin 0.4 mg capsule 0.4 mg PO DAILY Urinary issue 01/12/22
amlodipine 2.5 mg tablet 2.5 mg PO DAILY #30 tabs 06/07/22
aspirin 81 mg tablet,delayed release (Adult Aspirin Regimen) 81 mg PO DAILY #30 tabs 06/07/22
cinacalcet 30 mg tablet 30 mg PO DAILY #30 tabs 06/07/22
pantoprazole 40 mg tablet,delayed release 40 mg PO DAILY #30 tabs 06/07/22
acetaminophen 325 mg tablet 650 mg PO Q4H PRN pain 01/08/25
cholecalciferol (vitamin D3) 50 mcg (2,000 unit) tablet (Vitamin D3) 100 mcg PO HS 01/08/25
lisinopril 20 mg tablet 20 mg PO DAILY 01/08/25
magnesium glycinate 100 mg (as glycinate) tablet 100 mg PO HS 01/08/25
vitamin B complex 1 cap PO HS 01/08/25
Review of Systems
-
A 12 point ROS was completed and negative except as noted: Yes
Constitutional: Denies Fever or Chills
Respiratory: Denies Cough or Trouble Breathing
Cardiac: Reports See HPI
Physical Exam
Vital Signs
Vital Signs
Temp Pulse Resp BP Pulse Ox
97.6 F 58 20 126/78 98
06/18/25 09:42 06/18/25 12:45 06/18/25 12:45 06/18/25 12:00 06/18/25 10:59
Physical Exam
General: Comfortable and Conversant
HEENT: Anicteric and Moist mucous membranes
Respiratory: Clear and Non Labored Respirations
Cardiac: S1/S2 and Regular Rhythm
GI: Soft and Non Distended
Rectal: Deferred by Provider
Musculoskeletal: No Clubbing, No Cyanosis and No Edema
Skin: Warm and Dry
Neuro: Awake, Alert, Oriented and Nonfocal/grossly intact
Psych: Calm
Laboratory Results
-
06/18/25 10:05
06/18/25 10:05
Laboratory Results
Total Bilirubin 0.5 mg/dl (0.2-1.3) 06/18/25 10:05
AST 18 U/L (17-59) 06/18/25 10:05
ALT 11 U/L (0-50) 06/18/25 10:05
Alkaline Phosphatase 66 U/L (38-126) 06/18/25 10:05
Troponin I 0.043 ng/ml H* 06/18/25 10:05
Data Reviewed
-
Lab Data: Labs Reviewed by me
Impression/Plan
-
Acute Coronary Syndrome, suspect Non-ST Elevation NH
-Consult Cardiology
-Continue heparin drip
-Continue aspirin
-Continue to trend troponin
-Continue NPO for possible cardiac cath based on repeat troponin
Paroxysmal Atrial Fibrillation
-Patient is not on anticoagulation as outpatient
-Continue atenolol
Essential Hypertension
-Continue amlodipine, atenolol
Hyperlipidemia
-Continue ezetimibe
-Check Lipid Panel
-Patient reports intolerance to statins with myalgias
Hyperparathyroidism
-Calcium level appears close to baseline
-Continue cinacalcet
BPH
-Monitor bladder scans
-Continue finasteride and tamsulosin
DVT proph: Heparin drip
Code Status: Full Code
[2025-06-18] MEDS: NITROSTAT (SUBLINGUAL) 0.4 MG SL (13:01)
[2025-06-18 13:37] LABS: APTT 28.9 Sec (23.4-35.0)
--- NOTE | 2025-06-18 13:41 | CON.CAR ---
Addendum entered and electronically signed by Liliane Doshi MD 06/18/25 15:43:
I saw and examined the patient.
The Compliance Advisor's note was reviewed and I agree with the note.
Comment: Mr Abdi is a 89-year-old gentleman very hard of hearing with significant past medical history including hypertension, hyperlipidemia, osteoporosis, coronary artery disease status post drug-eluting stents previously to RCA in 2008,
paroxysmal atrial fibrillation not on full anticoagulation due to prior history of hematuria and medication nonadherence, osteoporosis, very frequent falls, hyperparathyroidism, melanoma, BPH, nephrolithiasis as potential cause for ongoing
hematuria, prior urosepsis status post right uteroscopy with laser lithotripsy, basket extraction of stone fragments and ureteral stenting exchange in December 2024 who presents with bilateral arm pain associated with belching without significant chest
discomfort. He took some nitroglycerin at home with very minimal relief given through the emergency room. He tells me this has been similar to prior episode in 2021 when he ruled in for an NSTEMI and was treated conservatively with medical therapy
given ongoing hematuria on Xarelto at the time. He was given full dose aspirin and additional sublingual nitroglycerin in the emergency room and has been chest pain-free. His initial troponin came back at 0.043 and went up to 0.226. ECG with
sinus rhythm, right bundle branch block and no acute ischemic changes. T wave inversions noted in the anterior leads.
.
Vital signs and lab work reviewed. On exam patient is extremely hard of hearing, at bedside, in no acute distress, awake, alert and oriented x 3, decreased breath sounds at bilateral bases, no carotid bruits, normal carotid upstrokes, regular
rate, normal S1 and S2, no murmurs, rubs or gallops, abdomen is soft, nontender, nondistended with active bowel sounds, warm extremities without significant edema.
Recommendations:
1. Given concern for possible ACS given symptoms are similar to prior presentations with NSTEMI's with minimal troponins and longstanding history of ongoing hematuria, medication noncompliance as well as frequent falls, plan for now is to not
urgently jang him to the heart catheterization lab. We will focus on medical therapy with daily baby aspirin, IV unfractionated heparin drip, making sure he remains chest pain-free with sublingual nitroglycerin as needed, beta-duncan as tolerated
and high intensity statin. We will discuss risk and benefits of potentially loading with second antiplatelet agent to see how he tolerates it from a hematuria standpoint. We will check a baseline urinalysis to assess for any micro hematuria.
2. Check an echocardiogram today to assess biventricular function and rule out any significant valvular abnormalities.
3. Depending on his hematuria on blood thinners, have a discussion with family in regards to being aggressive and going down the route of invasive procedures and a coronary angiogram plus possible PCI and need for dual antiplatelet therapy versus
treating medically.
4. Assessment of secondary risk factors and aggressive management of this.
Discussed all of the above in significant detail with patient and at bedside.
Liliane Doshi MD, [facility], [facility].
[id number]
Original Note:
Consultation
Consultation Request
Date/Time Consultation Requested: 06/18/2025
Date/Time Consultation Performed: 06/18/2025
Requesting Provider: Nakul Marcos
Performing Provider: Saundra Chavez PA-C for Dr. Doshi
Reason for Consultation: Bilateral arm pain with belching, abnormal troponin
Medical History
-
History of Present Illness:
Meng is an 89 year old male with PMH of CAD s/p NSTEMI with MEMO to RCA in 2008, PAF, HTN, HLD, and osteoporosis who presented to [facility] ED after awaking with acute episode of bilateral arm pain associated with extreme belching and mild chest
pressure. He took SL NTG x 1 at homewith some improvement and came to hospital. Currently he still has mild bilateral arm pain/chest pressure but denies SOB, diaphoresis, nausea, dizziness, or lightheadedness. He reports he had similar episode in
2021 and ruled in for NSTEMI at the time and was treated with conservative medical management given ongoing hematuria on OAC. On arrival to ED he was provided aspirin 325 mg and additional sublingual nitroglycerin. Patient was noted to have
elevated troponin in emergency department at 0.043, repeat 0.266. EKG demonstrated sinus rhythm with right bundle branch block with nonspecific T wave abnormality and inferior leads and T wave inversion in anterior leads.
He has a history of CAD with MEMO to RCA 12/2008 with residual 75% stenosis of the LAD noted. He is on aspirin as OP. Previously diagnosed with remote atrial fibrillation and stopped anticoagulation on his own as outpatient due to hematuria. He also
has a history of statin intolerance and is only on Zetia for hyperlipidemia.
PMH:
CAD
s/p NSTEMI 12/27/2008 s/p Xience MEMO to RCA
residual 75% stenosis of mid LAD
Paroxysmal Atrial Fibrillation
self discontinued Xarelto due to hematuria in 2021
HTN
HLD with h/o statin intolerance
Osteoporosis
Hyperparathyroidism
Melanoma
BPH
Nephrolithiasis
History of urosepsis/UTI
s/p Right ureteroscopy with laser lithotripsy, basket extraction of stone fragments, and ureteral stent exchange (12/2024).
Past Medical History
Past Medical History: Other (In HPI)
Past Surgical History: Cardiac (RCA MEMO 2008), Urological (s/p Right ureteroscopy with laser lithotripsy, basket extraction of stone fragments, and ureteral stent exchange (12/2024). ) and Other (Melanoma excision)
Social History
Tobacco: Non-Smoker
Alcohol: None
Drug: None
Personal:
Living: With Family
Employment: Retired
Family History
Family History: CAD
Allergies / Home Medications
Allergy/AdvReac Type Severity Reaction Status Date / Time
amoxicillin Allergy Diarrhea, Verified 06/18/25 09:44
difficulty
to walk
�Medication �Instructions �Recorded �Confirmed �Type
atenolol 50 mg tablet 50 mg PO DAILY Blood pressure 01/12/22 06/18/25 History
ezetimibe 10 mg tablet 10 mg PO HS High cholesterol 01/12/22 06/18/25 History
finasteride 5 mg tablet 5 mg PO HS Urinary issue 01/12/22 06/18/25 History
tamsulosin 0.4 mg capsule 0.4 mg PO DAILY Urinary issue 01/12/22 06/18/25 History
amlodipine 2.5 mg tablet 2.5 mg PO DAILY #30 tabs 06/07/22 06/18/25 Rx
aspirin 81 mg tablet,delayed 81 mg PO DAILY #30 tabs 06/07/22 06/18/25 Rx
release (Adult Aspirin Regimen)
cinacalcet 30 mg tablet 30 mg PO DAILY #30 tabs 06/07/22 06/18/25 Rx
pantoprazole 40 mg tablet,delayed 40 mg PO DAILY #30 tabs 06/07/22 06/18/25 Rx
release
acetaminophen 325 mg tablet 650 mg PO Q4H PRN pain 01/08/25 06/18/25 History
cholecalciferol (vitamin D3) 50 100 mcg PO HS 01/08/25 06/18/25 History
mcg (2,000 unit) tablet (Vitamin
D3)
lisinopril 20 mg tablet 20 mg PO DAILY 01/08/25 06/18/25 History
magnesium glycinate 100 mg (as 100 mg PO HS 01/08/25 06/18/25 History
glycinate) tablet
vitamin B complex 1 cap PO HS 01/08/25 06/18/25 History
Review of Systems
-
History Source: Patient
All other systems: Negative unless noted
Physical Exam
Vital Signs
Temp Pulse Resp BP Pulse Ox
97.6 F 58 20 135/77 98
06/18/25 09:42 06/18/25 12:45 06/18/25 12:45 06/18/25 13:01 06/18/25 10:59
GEN: No distress, awake, Ox3
HEENT: supple, anicteric, mmm
LUNGS: CTA, no wheezes/rales
CV: Reg, S1/S2, no murmur, rub or gallop
ABD: soft, BS+, NT/ND
EXT: No edema, clubbing or cyanosis
NEURO: Gross non-focal
SKIN: No rash, warm, dry, pink
Lab Results
06/18/25 10:05
06/18/25 10:05
Troponin I 0.043 ng/ml H* 06/18/25 10:05
Impression / Plan
-
PCP Tucker Lay
Manager Client Support: Dr. Inman
Impression:
Presents 06/18/2025 with bilateral arm pain, belching and chest pain
Elevated troponin, suspect NSTEMI
CAD
s/p NSTEMI 12/27/2008 s/p Xience MEMO to RCA
residual 75% stenosis of mid LAD
Paroxysmal Atrial Fibrillation
self discontinued Xarelto due to hematuria in 2021
HTN
HLD with h/o statin intolerance
Osteoporosis
Hyperparathyroidism
Melanoma
BPH
Nephrolithiasis
History of urosepsis/UTI
s/p Right ureteroscopy with laser lithotripsy, basket extraction of stone fragments, and ureteral stent exchange (12/2024).
Echo 06/05/2022: EF 55 to 60%, no R WMA, mild MR, mild TR, estimated PAP 30 to 43 mmHg
Echo 05/21/2021: EF 55-60%, mild cLVH, mild MR, aortic sclerosis without stenosis, mild TR, estimated PAP 33mmHg
Exercise nuclear stress test 12/26/2018: Completed 5 minutes of Fletcher protocol achieving 6.0 METS. Stress ECG positive for ischemia with 1mm ST depression in II, III, AVF, V5, V6. Perfusion imaging revealed small area of mildly decreased perfusion in
the apical septal segment and apex segment consistent with infarction with residual ischemia. EF 63%.
Plan:
-Presents 06/18/2025 with bilateral arm pain, belching and chest pressure.
-Pain improved with sublingual nitroglycerin x 2.
-EKG demonstrates sinus rhythm with right bundle branch block and nonspecific T wave abnormality in inferior leads and T wave inversion in anterior leads
-Initial troponin 0.043, repeat 0.266. Suspect NSTEMI. He does have history of CAD with MEMO to RCA and residual 75% stenosis of LAD by cath 12/2008. Continue to trend to peak
-Provided 324 mg aspirin in emergency department and placed on IV heparin drip.
-Check echocardiogram
-Has been tolerating aspirin 81 mg at home without hematuria. Recently had right laser lithotripsy, basket extraction of stone fragments from bladder stone December 2024. Would check urine analysis to look for microhematuria
-Discussed proceeding with [facility] vs medical management of presumed CAD. Some history of noncompliance with medications. He self discontinued Xarelto secondary to hematuria in 2021. Would make sure patient is able to tolerate IV heparin without
additional hematuria or bleeding issues prior to proceeding w/ cath. Discussed with patient if he would undergo PCI/stent he would require dual antiplatelet therapy for a minimum of 6 months. He would need to be compliant and not skip or miss any
doses. This was reviewed with patient and his at bedside.
-History of statin intolerance but tolerates Zetia. Check CVE and HgA1c.
- History of hypertension continue lisinopril, amlodipine and atenolol.
-Patient has history remote of PAF and stopped Xarelto on his own due to hematuria in 2021. Remains in SR on review of telemetry and has not had additional documentation of A-fib over the last several years.
HPI 06/18/2025:
Meng is an 89 year old male with PMH of CAD s/p NSTEMI with MEMO to RCA in 2008, PAF, HTN, HLD, and osteoporosis who presented to [facility] ED after awaking with acute episode of bilateral arm pain associated with extreme belching and mild chest
pressure. He took SL NTG x 1 at homewith some improvement and came to hospital. Currently he still has mild bilateral arm pain/chest pressure but denies SOB, diaphoresis, nausea, dizziness, or lightheadedness. He reports he had similar episode in
2021 and ruled in for NSTEMI at the time and was treated with conservative medical management given ongoing hematuria on OAC. On arrival to ED he was provided aspirin 325 mg and additional sublingual nitroglycerin. Patient was noted to have
elevated troponin in emergency department at 0.043, repeat 0.266. EKG demonstrated sinus rhythm with right bundle branch block with nonspecific T wave abnormality in inferior leads and T wave inversion in anterior leads.
He has a history of CAD with MEMO to RCA 12/2008 with residual 75% stenosis of the LAD noted. He is on aspirin as OP. Previously diagnosed with remote atrial fibrillation and stopped anticoagulation on his own as outpatient due to hematuria. He also
has a history of statin intolerance and is only on Zetia for hyperlipidemia.
Data Reviewed
-
EKG: Report Reviewed by me, Discussed with Physician, Discussed with Nurse, Discussed with Patient and Discussed with Family
Labs: Labs Reviewed by me, Discussed with Physician, Discussed with Nurse, Discussed with Patient and Discussed with Family
Old Records: Reviewed
[2025-06-18 14:09] LABS: Troponin I 0.226 ng/ml
[2025-06-18] MEDS: HEPARIN 4000 UNITS IV (14:44)
[2025-06-18 14:45] LABS: Urine Character Cloudy (Clear)
[2025-06-18] MEDS: HEPARIN 25000 UNITS/250 ML IV (14:47)
[2025-06-18 15:07] LABS: Urine White Cell >100 /HPF (0-5)
[2025-06-18] MEDS: PLAVIX 600 MG PO (16:42)
[2025-06-18] MEDS: PROSCAR 5 MG PO (21:03)
[2025-06-18] MEDS: ZETIA 10 MG PO (21:03)
[2025-06-18 21:35] LABS: Troponin I 2.970 ng/ml
[2025-06-18 21:42] LABS: APTT 164.4 Sec (23.4-35.0)
[2025-06-19] VITALS (14 sets, daily range): BP systolic 104–178; BP diastolic 57–83; BMI 21.7
--- NOTE | 2025-06-19 00:05 | PTCARENOTE ---
Received pt into room 2246 from ED RN via stretcher. pt oriented to room and call cantrell. Assessment and admission completed as documented. Tele placed on pt, SB-SR 50's-60's. pt denies any SOB, CP or b/l arm pain at this time. Reinforced NPO status
after midnight. CAD booklet provided to pt. High fall risk precautions maintained, fall risk bracelet applied to pt. Bed alarm on and audible. Call cantrell within reach.
[2025-06-19 05:56] LABS: APTT 140.1 Sec (23.4-35.0)
[2025-06-19 06:01] LABS: Blood Urea Nitrogen 15 mg/dl (9-20); Calcium 11.2 mg/dl (8.4-10.2); Carbon Dioxide 26 mmol/L (22-30); Chloride 108 mmol/L (98-107); Estimated Creatinine Clearance 46 ml/min; Glucose 87 mg/dl (70-99); HDL Cholesterol 57 mg/dl; LDL Cholesterol, Calculated 114 mg/dl; Potassium 3.5 mmol/L (3.5-5.1); Sodium 138 mmol/L (135-145); Very Low Density Lipoprotein 15 mg/dl (0-30); eGFR > 60.00
[2025-06-19 06:11] LABS: Troponin I 1.680 ng/ml
[2025-06-19 08:51] LABS: Glycohemoglobin (HgbA1c) 5.7 % (4.0-5.9)
[2025-06-19] MEDS: KCL 20 MEQ PO (09:04)
[2025-06-19] MEDS: ASPIR LOW (ENTERIC COATED) 81 MG PO (09:05)
[2025-06-19] MEDS: ZESTRIL 20 MG PO (09:05)
[2025-06-19] MEDS: NORVASC 2.5 MG PO (09:05)
[2025-06-19] MEDS: PROTONIX 40 MG PO (09:05)
[2025-06-19] MEDS: PLAVIX 75 MG PO (09:05)
[2025-06-19] MEDS: TENORMIN 50 MG PO (09:05)
[2025-06-19] MEDS: FLOMAX 0.4 MG PO (09:06)
--- NOTE | 2025-06-19 09:25 | W.PN.HOSP.TC ---
Today's Communication/Plan
-
Follow-up with bead trimmer recommendations
Assessment / Plan
Assessment / Plan
Physical Exam
General: Comfortable and Conversant
HEENT: Anicteric and Moist mucous membranes. Dry wound on left eye brow( old)
Respiratory: Clear and Non Labored Respirations
Cardiac: S1/S2 and Regular Rhythm
GI: Soft and Non Distended
Rectal: No bleeding
Musculoskeletal: No Clubbing, No Cyanosis and No Edema
Skin: Warm and Dry
Neuro: Awake, Alert, Oriented and Nonfocal/grossly intact
Psych: Calm
Acute Coronary Syndrome, suspect Non-ST Elevation HI
No chest pain
No sob
Troponin peak at 2.9, trending down
LDL 114, triglycerides 75, total cholesterol 186
-Continue heparin drip
-Continue aspirin
-Continue to trend troponin
-Continue NPO for possible cardiac cath based on repeat troponin
Appreciate cardiology help
# Borderline hypokalemia. Will give oral potassium
# Hypercalcemia. History of
Primary hyperparathyroidism, under care of Dr. Harper, machine striper.
Paroxysmal Atrial Fibrillation
-Patient is not on anticoagulation as outpatient
-Continue atenolol
Essential Hypertension
-Continue amlodipine, atenolol
Hyperlipidemia
-Continue ezetimibe
-Check Lipid Panel
-Patient reports intolerance to statins with myalgias
Hyperparathyroidism
-Calcium level appears close to baseline
-Continue cinacalcet
BPH
-Monitor bladder scans
-Continue finasteride and tamsulosin
DVT proph: Heparin drip
Code Status: Full Code
Total time spent to see the patient, examine the patient, review data and lab results, discuss treatment plan with patient, nursing staff around 55 minutes
Anticipated Discharge: 24 - 48 hours
Subjective/Interval History
-
Date of Service: June 19, 2025
No chest pain
No sob
Objective Data
-
Labs:
Laboratory Results
06/18/25 06/19/25 06/19/25
21:01 05:06 13:00
APTT 164.4 H* 140.1 H Pending
Sodium 138
Potassium 3.5
Chloride 108 H
Carbon Dioxide 26
BUN 15
Creatinine 1.1
Glucose 87
Calcium 11.2 H
Vital Signs:
Vital Signs
Temp Pulse Resp BP Pulse Ox
97.9 F 63 16 141/74 98
06/19/25 07:34 06/19/25 09:05 06/19/25 07:34 06/19/25 09:05 06/19/25 07:34
I&O
06/18/25 06/19/25 06/20/25
06:59 06:59 06:59
Intake Total 208 / 208
Output Total 325 / 325 125 / 125
Balance -117 / -117 -125 / -125
--- NOTE | 2025-06-19 09:43 | PTCARENOTE ---
received patient this am, monitor shows NSR, VSS. patient had a run of Vtach this am, asymptomatic, K 3.5, supplemented as ordered. IV heparin @ 500units/hr via right arm without difficulties. patient is extremely [place]. patient remains NPO for
possible heart cath today.
[2025-06-19] MEDS: SENSIPAR 30 MG PO (10:09)
[2025-06-19 13:28] LABS: APTT 68.5 Sec (23.4-35.0)
[2025-06-19 13:41] LABS: Troponin I 0.917 ng/ml
--- NOTE | 2025-06-19 15:40 | W.PN.CARDCBS ---
Today's Communication / Plan
-
Plan:
-Presents 06/18/2025 with bilateral arm pain, belching and chest pressure.
-Pain improved with sublingual nitroglycerin x 2.
-EKG demonstrates sinus rhythm with right bundle branch block and nonspecific T wave abnormality in inferior leads and T wave inversion in anterior leads
-Initial troponin 0.043, peak of 2.99 consistent with a type I NSTEMI. He does have history of CAD with MEMO to RCA and residual 75% stenosis of LAD by cath 12/2008.
- Echocardiogram with normal biventricular function and no significant valvular abnormalities.
-On IV heparin drip and was loaded with 600 mg of Plavix last night and received 75 mg of Plavix this morning along with daily baby aspirin. Hemoglobin has been stable with no gross hematuria.
-Recently had right laser lithotripsy, basket extraction of stone fragments from bladder stone December 2024. Would check urine analysis to look for microhematuria
-Some history of noncompliance with medications. He self discontinued Xarelto secondary to hematuria in 2021.
-History of statin intolerance but tolerates Zetia. Strongly consider PCSK9 inhibitors as an outpatient
- History of hypertension continue lisinopril, amlodipine and atenolol.
-Patient has history remote of PAF and stopped Xarelto on his own due to hematuria in 2021. Remains in SR on review of telemetry and has not had additional documentation of A-fib over the last several years.
- A very lengthy extensive discussion was had multiple times at bedside with patient, his and then his daughter, Monisha at bedside and over the phone. There have been extreme concerns in regards to patient's hematuria though his hemoglobin has
been stable and he is not been anemic with no gross hematuria noted this admission. UA did show some occult blood from prior history of bladder stones. Given recurrent type I NSTEMI presentation discussed options of medical therapy only also
reviewing risk for higher MACE events worsens proceeding with coronary angiogram with plan to either stent if he find obstructive CAD that the same time worsens proceeding with a diagnostic heart catheterization with staged PCI after discussion with
them given their concerns for hematuria and need for dual antiplatelet therapy. After a very extensive and repeated discussion, the decision is to proceed with diagnostic heart catheterization and stopping to have a discussion in case interventions
are needed
Total time spent: 52mins
Impression / Plan
-
PCP Tucker Lay
Living Coach: Dr. Inman
Impression:
Presents 06/18/2025 with bilateral arm pain, belching and chest pain
Elevated troponin, suspect NSTEMI
CAD
s/p NSTEMI 12/27/2008 s/p Xience MEMO to RCA
residual 75% stenosis of mid LAD
Paroxysmal Atrial Fibrillation
self discontinued Xarelto due to hematuria in 2021
HTN
HLD with h/o statin intolerance
Osteoporosis
Hyperparathyroidism
Melanoma
BPH
Nephrolithiasis
History of urosepsis/UTI
s/p Right ureteroscopy with laser lithotripsy, basket extraction of stone fragments, and ureteral stent exchange (12/2024).
Echo 06/05/2022: EF 55 to 60%, no R WMA, mild MR, mild TR, estimated PAP 30 to 43 mmHg
Echo 05/21/2021: EF 55-60%, mild cLVH, mild MR, aortic sclerosis without stenosis, mild TR, estimated PAP 33mmHg
Exercise nuclear stress test 12/26/2018: Completed 5 minutes of Fletcher protocol achieving 6.0 METS. Stress ECG positive for ischemia with 1mm ST depression in II, III, AVF, V5, V6. Perfusion imaging revealed small area of mildly decreased perfusion in
the apical septal segment and apex segment consistent with infarction with residual ischemia. EF 63%.
Plan:
-Presents 06/18/2025 with bilateral arm pain, belching and chest pressure.
-Pain improved with sublingual nitroglycerin x 2.
-EKG demonstrates sinus rhythm with right bundle branch block and nonspecific T wave abnormality in inferior leads and T wave inversion in anterior leads
-Initial troponin 0.043, peak of 2.99 consistent with a type I NSTEMI. He does have history of CAD with MEMO to RCA and residual 75% stenosis of LAD by cath 12/2008.
- Echocardiogram with normal biventricular function and no significant valvular abnormalities.
-On IV heparin drip and was loaded with 600 mg of Plavix last night and received 75 mg of Plavix this morning along with daily baby aspirin. Hemoglobin has been stable with no gross hematuria.
-Recently had right laser lithotripsy, basket extraction of stone fragments from bladder stone December 2024. Would check urine analysis to look for microhematuria
-Some history of noncompliance with medications. He self discontinued Xarelto secondary to hematuria in 2021.
-History of statin intolerance but tolerates Zetia. Strongly consider PCSK9 inhibitors as an outpatient
- History of hypertension continue lisinopril, amlodipine and atenolol.
-Patient has history remote of PAF and stopped Xarelto on his own due to hematuria in 2021. Remains in SR on review of telemetry and has not had additional documentation of A-fib over the last several years.
- A very lengthy extensive discussion was had multiple times at bedside with patient, his and then his daughter, Monisha at bedside and over the phone. There have been extreme concerns in regards to patient's hematuria though his hemoglobin has
been stable and he is not been anemic with no gross hematuria noted this admission. UA did show some occult blood from prior history of bladder stones. Given recurrent type I NSTEMI presentation discussed options of medical therapy only also
reviewing risk for higher MACE events worsens proceeding with coronary angiogram with plan to either stent if he find obstructive CAD that the same time worsens proceeding with a diagnostic heart catheterization with staged PCI after discussion with
them given their concerns for hematuria and need for dual antiplatelet therapy. After a very extensive and repeated discussion, the decision is to proceed with diagnostic heart catheterization and stopping to have a discussion in case interventions
are needed
HPI 06/18/2025:
Meng is an 89 year old male with PMH of CAD s/p NSTEMI with MEMO to RCA in 2008, PAF, HTN, HLD, and osteoporosis who presented to [facility] ED after awaking with acute episode of bilateral arm pain associated with extreme belching and mild chest
pressure. He took SL NTG x 1 at homewith some improvement and came to hospital. Currently he still has mild bilateral arm pain/chest pressure but denies SOB, diaphoresis, nausea, dizziness, or lightheadedness. He reports he had similar episode in
2021 and ruled in for NSTEMI at the time and was treated with conservative medical management given ongoing hematuria on OAC. On arrival to ED he was provided aspirin 325 mg and additional sublingual nitroglycerin. Patient was noted to have
elevated troponin in emergency department at 0.043, repeat 0.266. EKG demonstrated sinus rhythm with right bundle branch block with nonspecific T wave abnormality in inferior leads and T wave inversion in anterior leads.
He has a history of CAD with MEMO to RCA 12/2008 with residual 75% stenosis of the LAD noted. He is on aspirin as OP. Previously diagnosed with remote atrial fibrillation and stopped anticoagulation on his own as outpatient due to hematuria. He also
has a history of statin intolerance and is only on Zetia for hyperlipidemia.
Progress Note - Living Coach
Subjective
Date of Service: June 19, 2025
No events overnight. No further arm pain
Objective
Labs:
06/18/25 10:05
06/19/25 05:06
Labs
Hgb 13.1 g/dL (13.0-18.0) 06/18/25 10:05
Hct 39.9 % (39.0-52.0) 06/18/25 10:05
Plt Count 262 10^3/uL (130-400) 06/18/25 10:05
APTT 68.5 Sec (23.4-35.0) H 06/19/25 13:01
Sodium 138 mmol/L (135-145) 06/19/25 05:06
Potassium 3.5 mmol/L (3.5-5.1) 06/19/25 05:06
BUN 15 mg/dl (9-20) 06/19/25 05:06
Creatinine 1.1 mg/dL (0.7-1.3) 06/19/25 05:06
Glucose 87 mg/dl (70-99) 06/19/25 05:06
Troponins
06/18/25 06/18/25 06/18/25
10:05 13:06 21:01
Troponin I 0.043 H* 0.226 H* D 2.970 H* D
06/19/25 06/19/25
05:06 13:01
Troponin I 1.680 H* 0.917 H* D
Vital Signs and I&O:
Vital Signs
Temp Pulse Resp BP Pulse Ox
97.9 F 59 16 109/72 96
06/19/25 14:56 06/19/25 14:36 06/19/25 14:36 06/19/25 14:36 06/19/25 14:36
Vital Signs
Temp Pulse Resp BP Pulse Ox
97.9 F 59 16 109/72 96
06/19/25 14:56 06/19/25 14:36 06/19/25 14:36 06/19/25 14:36 06/19/25 14:36
Intake & Output
06/17/25 06/18/25 06/19/25 06/20/25
06:59 06:59 06:59 06:59
Intake Total 208 / 208 148 / 148
Output Total 325 / 325 625 / 625
Balance -117 / -117 -477 / -477
Physical Exam
Physical Exam
heent ncat
jvp 6
cor regular
lungs ctab
abd soft nt nd
no ext edema
aao x3
--- NOTE | 2025-06-19 16:19 | ITS.CL.CATH ---
G[facility]aster - Catheterization
Cardiac Catheterization
Procedure Report:
LEFT HEART CATHETERIZATION
Date of Procedure: June 19, 2025
Referring: Liliane Doshi MD, [facility], [facility]
PROCEDURES:
1. Left heart catheterization, coronary angiogram.
2. Moderate sedation.
INDICATION: NSTEMI
ACCESS: Right radial artery, 6Fr. sheath, under US guidance.
HEMODYNAMICS : (mmHg)
AO (s/d) : 119/70
LVEDP : 11
No significant gradient across the aortic valve to suggest aortic stenosis.
CORONARY FINDINGS
Dominance: Right
Left Main Trunk (LMT): Large caliber vessel that gives rise to the LAD and LCx branches and there is mild diffuse atherosclerotic plaque.
Left Anterior Descending Artery (LAD): Large caliber vessel that gives off 1 major diagonal branches as it courses along the anterior inter-ventricular groove before wrapping around the cardiac apex. The LAD has multiple serial lesions diffusely
spread in the mid LAD at the level of the takeoff of the major diagonal and distal to that up to 80-90%. The major diagonal branch is a medium caliber vessel with 50 to 60% ostial stenosis and 70 to 80% stenosis in the midportion.
Left Circumflex Artery (LCx): Small to be caliber vessel that gives off 1 small caliber major obtuse marginal (OM) branches as it courses along the atrio-ventricular (AV) groove. There is 2 serial 70 to 80% stenoses and a very small caliber OM
branch which are not great PCI targets.
Right Coronary Artery (RCA): Large caliber dominant vessel that gives rise to the posterior descending artery (RPDA) and postero-lateral ventricular (RPLV) branches distally. The mid RCA stent is widely patent. Just distal to the stent there is a
70 to 75% stenosis with possible haziness in some views. Distal to this there is a 50 to 60% stenosis before the takeoff of the posterolateral branch. RPDA has a chronic total occlusion in the midportion with right to right collaterals. There is
a 50% lesion in the lower branch and the posterolateral branch
SEDATION: 27 minutes of procedural sedation was utilized. IV Midazolam and IV Fentanyl were administered. An independent biomedical service engineer was present to assist with and help manage the patient's level of consciousness and physiologic status.
Closure Device: There were no immediate intra-procedural complications. The sheath was pulled in the laborer beam house and a vascular-band applied to the right wrist for radial artery hemostasis using the patent hemostasis technique.
CONCLUSIONS
1. Multivessel coronary artery disease as described above.
2. LVEDP is normal at 11 mmHg.
RECOMMENDATIONS
1. Wean radial band per protocol. Monitor right hand perfusion and for bleeding from the radial site following removal of the vascular-band following trans-radial access.
2. Continue aggressive medical therapy and risk factor modification for secondary CAD prevention.
3. Hydrate with normal saline to mitigate the risk of contrast-induced acute kidney injury.
4. Reviewed findings of the heart catheterization with patient, and daughter at bedside and had another extensive lengthy discussion in regards to treatment options including medical therapy only which comes with increased risk for Mace events
in the setting of an NSTEMI versus proceeding with PCI to mid LAD in distal RCA reviewing the need for dual antiplatelet therapy with close monitoring of his hematuria and blood counts.
Liliane Doshi MD, [facility], [facility]
Copy to: Luke Inman MD
--- NOTE | 2025-06-19 16:25 | CM ---
spoke to pt in room, he is prev indep, lives with his in a 2 story home with 1 step to enter. he has a walker he uses. he denies any dc planning needs. plan is for dc to home when medically stable.
[2025-06-19] MEDS: LIPITOR 40 MG PO (17:28)
[2025-06-19] MEDS: PROSCAR 5 MG PO (22:21)
[2025-06-19] MEDS: ZETIA 10 MG PO (22:21)
[2025-06-20] VITALS (9 sets, daily range): BP systolic 98–149; BP diastolic 52–98; BMI 21.3
[2025-06-20 03:06] LABS: Hematocrit 40.4 % (39.0-52.0); Hemoglobin 13.3 g/dL (13.0-18.0); Mean Corp Hgb Conc. 32.9 g/dL (33.0-37.0); Mean Corpuscular Volume 87.4 fL (80.0-94.0); Platelet Count 273 10^3/uL (130-400); Red Cell Dist. Width 13.2 % (11.5-14.5)
[2025-06-20 03:28] LABS: Blood Urea Nitrogen 16 mg/dl (9-20); Calcium 11.5 mg/dl (8.4-10.2); Carbon Dioxide 25 mmol/L (22-30); Chloride 107 mmol/L (98-107); Estimated Creatinine Clearance 46 ml/min; Glucose 108 mg/dl (70-99); Magnesium 1.9 mg/dl (1.6-2.3); Potassium 4.2 mmol/L (3.5-5.1); Sodium 138 mmol/L (135-145); eGFR > 60.00
--- NOTE | 2025-06-20 04:52 | PTCARENOTE ---
Received pt at change of shift resting in bed. SB-SR on tele, HR 50's-60's. R radial site C/D/I, no bleeding or hematoma noted at this time. Reinforced activity restrictions of R wrist, pt verbalizes understanding. pt denies any CP or b/l arm pain
at this time. Fall risk precautions maintained, bed alarm on and audible. Educated pt to call RN for assistance ambulating, pt calls appropriately. Call cantrell within reach.
@[id number] tele monitor showed 19 beat tachy run, pt asymptomatic. Chrissy Penn, SPRAY DRY OPERATOR made aware. EKG order placed and mag added onto morning labs. EKG obtained and sent to SPRAY DRY OPERATOR.
--- NOTE | 2025-06-20 07:50 | ITS.CL.CATH ---
Inspection Machine Tender - Catheterization
Cardiac Catheterization
Procedure Report:
CORONARY INTERVENTION
Date of Procedure: June 20, 2025
Referring: Liliane Doshi MD, [facility]
PROCEDURES:
1. Left heart catheterization to help with post PCI hydration given he had contrast with diagnostic heart catheterization yesterday and is 89 years of age with mild renal dysfunction
2. Moderate sedation.
3. Successful percutaneous coronary artery intervention of multiple serial up to 80-90% stenoses in the mid to distal LAD with 2 overlapping 2.75 x 38 and 3.5 x 22 mm Medtronic [place] frontier drug-eluting stents, postdilated using IVUS guidance with
2.75 mm NC balloon at high pressures distally and 4.5 mm NC balloon at high pressures proximally with an excellent angiographic result.
4. Successful percutaneous coronary artery intervention of a hazy 70 to 75% stenosis in the mid RCA just distal to a old stent with one 3.5 x 18 mm Medtronic Lav[place] frontier drug-eluting stent, postdilated using IVUS guidance with a 3.5 mm NC balloon
at high pressures with an excellent angiographic result.
5. Intravascular ultrasound (IVUS) of LAD.
6. Intravascular ultrasound (IVUS) of RCA
INDICATION: NSTEMI
ACCESS: Right radial artery, 6Fr. sheath, under US guidance.
HEMODYNAMICS : (mmHg)
AO (s/d) : 141/72
LVEDP : 22
No significant gradient across the aortic valve to suggest aortic stenosis.
CORONARY FINDINGS
Dominance: Right
Left Main Trunk (LMT): Large caliber vessel that gives rise to the LAD and LCx branches and there is mild diffuse atherosclerotic plaque.
Left Anterior Descending Artery (LAD): Large caliber vessel that gives off 1 major diagonal branches as it courses along the anterior inter-ventricular groove before wrapping around the cardiac apex. The LAD has multiple serial lesions diffusely
spread in the mid LAD at the level of the takeoff of the major diagonal and distal to that up to 80-90%. The major diagonal branch is a medium caliber vessel with 50 to 60% ostial stenosis and 70 to 80% stenosis in the midportion.
Left Circumflex Artery (LCx): Small to be caliber vessel that gives off 1 small caliber major obtuse marginal (OM) branches as it courses along the atrio-ventricular (AV) groove. There is 2 serial 70 to 80% stenoses and a very small caliber OM
branch which are not great PCI targets.
Right Coronary Artery (RCA): Large caliber dominant vessel that gives rise to the posterior descending artery (RPDA) and postero-lateral ventricular (RPLV) branches distally. The mid RCA stent is widely patent. Just distal to the stent there is a
70 to 75% stenosis with possible haziness in some views concerning that its possible culprit for presenting NSTEMI and thus was intervened upon. Distal to this there is a 50 to 60% stenosis before the takeoff of the posterolateral branch. RPDA has
a chronic total occlusion in the midportion with right to right collaterals. There is a 50% lesion in the lower branch and the posterolateral branch
CORONARY INTERVENTION of LAD: The left coronary artery was selectively engaged using a 6 [place] EBU 3.75 guide catheter. Additional heparin was given to maintain a therapeutic ACT throughout the case. A 180 cm 0.014 run-through wire was
successfully advanced into the major diagonal branch. A second 180 cm 0.014 run-through wire was successfully advanced into the distal LAD. We predilated the LAD lesions using a 2.75 x 20 mm semicompliant balloon with full expansion. We
subsequently stented the serial lesions in the mid to distal LAD using 2 overlapping 2.75 x 38 and 3.5 x 22 mm Medtronic [place] frontier drug-eluting stents. At this point we retracted the jailed wire in the diagonal branch and rewired through the
stent struts. Using IVUS guidance we postdilated using a 2.75 mm NC balloon at high pressures distally and a 4.5 mm NC balloon at high pressures proximally. There was 60% stenosis of the ostial diagonal branch with JENNIFER-3 flow. Patient tolerated
this portion without any complications.
CORONARY INTERVENTION OF RCA: Therefore, we decided to proceed with intervention on mid RCA. The right coronary artery was selectively engaged using a 6 [place] JR4 guide catheter. A 180 cm run-through wire was successfully navigated into the
distal vessel. Additional heparin was given to keep maintaining a therapeutic ACT throughout the case. We predilated the lesion using a 3.0 x 15 mm semicompliant balloon with full expansion. We subsequently stented the lesion using a 3.5 x 18 mm
Medtronic Lav[place] frontier drug-eluting stent and postdilated using IVUS guidance with a 3.5 mm NC balloon at high pressures with an excellent angiographic and IVUS based result. Patient tolerated the procedure well without any acute complications.
He was loaded with 600 mg of Plavix on June 18, 2025 and received maintenance dose of 75 mg of Plavix this morning along with a daily baby aspirin.
SEDATION: 67 minutes of procedural sedation was utilized. IV Midazolam and IV Fentanyl were administered. An independent medical underwriter was present to assist with and help manage the patient's level of consciousness and physiologic status.
Closure Device: There were no immediate intra-procedural complications. The sheath was pulled in the concrete plant laborer and a vascular-band applied to the right wrist for radial artery hemostasis using the patent hemostasis technique.
CONCLUSIONS
1. Successful percutaneous coronary artery intervention of multiple serial up to 80-90% stenoses in the mid to distal LAD with 2 overlapping 2.75 x 38 and 3.5 x 22 mm Medtronic [place] frontier drug-eluting stents, postdilated using IVUS guidance with
2.75 mm NC balloon at high pressures distally and 4.5 mm NC balloon at high pressures proximally with an excellent angiographic result.
2. Successful percutaneous coronary artery intervention of a hazy 70 to 75% stenosis in the mid RCA just distal to a old stent with one 3.5 x 18 mm Medtronic Lavina frontier drug-eluting stent, postdilated using IVUS guidance with a 3.5 mm NC balloon
at high pressures with an excellent angiographic result.
3. LVEDP 22mmHG
RECOMMENDATIONS
1. Wean radial band per protocol. Monitor right hand perfusion and for bleeding from the radial site following removal of the vascular-band following trans-radial access.
2. Continue aggressive medical therapy and risk factor modification for secondary CAD prevention.
3. Continue ASA 81 mg daily for life.
4. Continue clopidogrel for at least 12 months of uninterrupted dual anti-platelet therapy given drug-eluting stent (MEMO) implantation to mitigate the risk of stent thrombosis. This is not to be stopped for any reason without the guidance of a
toolroom attendant.
5. Hydrate with normal saline to mitigate the risk of contrast-induced acute kidney injury.
6. Referral for outpatient cardiac rehab.
7. Follow-up with Dr. Inman.
Liliane Doshi MD, [facility], [facility]
Copy to: Luke Inman MD
[2025-06-20] MEDS: PROTONIX 40 MG PO (08:56)
[2025-06-20] MEDS: PLAVIX 75 MG PO (08:56)
[2025-06-20] MEDS: ASPIR LOW (ENTERIC COATED) 81 MG PO (08:56)
[2025-06-20] MEDS: TENORMIN 50 MG PO (08:57)
[2025-06-20] MEDS: NORVASC 2.5 MG PO (08:57)
[2025-06-20] MEDS: SENSIPAR 30 MG PO (08:57)
[2025-06-20] MEDS: FLOMAX 0.4 MG PO (08:58)
[2025-06-20] MEDS: ZESTRIL 20 MG PO (09:11)
--- NOTE | 2025-06-20 09:50 | W.PN.HOSP.TC ---
Today's Communication/Plan
-
Pt reports he is going back to have another cardiac procedure
Assessment / Plan
Assessment / Plan
Physical Exam
General: Comfortable and Conversant
HEENT: Anicteric and Moist mucous membranes. Dry wound on left eye brow( old)
Respiratory: Clear and Non Labored Respirations
Cardiac: S1/S2 and Regular Rhythm
GI: Soft and Non Distended
Rectal: No bleeding
Musculoskeletal: No Clubbing, No Cyanosis and No Edema
Skin: Warm and Dry
Neuro: Awake, Alert, Oriented and Nonfocal/grossly intact
Psych: Calm
Acute Coronary Syndrome, Non-ST Elevation VA
No chest pain
No sob
Troponin peak at 2.9, trending down
LDL 114, triglycerides 75, total cholesterol 186
-s/p heparin drip
-Continue aspirin & Plavix, Stain
Already on Lisinopril & Atenolol.
-[facility] on by Dr Doshi
Per Dr Doshi report: Reviewed findings of the heart catheterization with patient, and daughter at bedside and had another extensive lengthy discussion in regards to treatment options including medical therapy only which comes with increased
risk for Mace events in the setting of an NSTEMI versus proceeding with PCI to mid LAD in distal RCA reviewing the need for dual antiplatelet therapy with close monitoring of his hematuria and blood counts.
Appreciate cardiology help
# Borderline hypokalemia. Will give oral potassium
# Hypercalcemia. History of
Primary hyperparathyroidism, under care of Dr. Harper, education counselor.
Paroxysmal Atrial Fibrillation
-Patient is not on anticoagulation as outpatient
-Continue atenolol
Essential Hypertension
-Continue amlodipine, atenolol
Hyperlipidemia
-Continue ezetimibe
-Check Lipid Panel
-Patient reports intolerance to statins with myalgias
Hyperparathyroidism
-Calcium level appears close to baseline
-Continue cinacalcet
BPH
-Monitor bladder scans
-Continue finasteride and tamsulosin
DVT proph: Heparin drip
Code Status: Full Code
Total time spent to see the patient, examine the patient, review data and lab results, discuss treatment plan with patient, nursing staff around 55 minutes
Anticipated Discharge: > 48 hours
Subjective/Interval History
-
Date of Service: June 20, 2025
Objective Data
-
Labs:
Laboratory Results
06/20/25
02:31
WBC 10.2
Hgb 13.3
Hct 40.4
Plt Count 273
Sodium 138
Potassium 4.2
Chloride 107
Carbon Dioxide 25
BUN 16
Creatinine 1.1
Glucose 108 H
Calcium 11.5 H
Vital Signs:
Vital Signs
Temp Pulse Resp BP Pulse Ox
98.0 F 56 18 149/98 96
06/20/25 02:25 06/20/25 09:11 06/20/25 02:25 06/20/25 09:11 06/20/25 02:25
I&O
06/19/25 06/20/25 06/21/25
06:59 06:59 06:59
Intake Total 208 / 208 268 / 268
Output Total 325 / 325 1075 / 1075
Balance -117 / -117 -807 / -807
[2025-06-20 09:55] LABS: ACT-LR - POC 252 Seconds (116-155)
[2025-06-20 10:06] LABS: ACT-LR - POC 311 Seconds (116-155)
[2025-06-20 10:21] LABS: ACT-LR - POC 297 Seconds (116-155)
[2025-06-20 10:47] LABS: ACT-LR - POC 324 Seconds (116-155)
--- NOTE | 2025-06-20 10:53 | PTCARENOTE ---
pt off unit for cath
[2025-06-20 11:13] LABS: ACT-LR - POC 298 Seconds (116-155)
[2025-06-20] MEDS: TYLENOL 650 MG PO (12:39)
[2025-06-20] MEDS: NSS 1000 IV (12:40)
--- NOTE | 2025-06-20 12:52 | W.PN.CARDCBS ---
Today's Communication / Plan
-
Plan:
-Presents 06/18/2025 with bilateral arm pain, belching and chest pressure.
-Pain improved with sublingual nitroglycerin x 2.
-EKG demonstrates sinus rhythm with right bundle branch block and nonspecific T wave abnormality in inferior leads and T wave inversion in anterior leads
-Initial troponin 0.043, peak of 2.99 consistent with a type I NSTEMI. He does have history of CAD with MEMO to RCA and residual 75% stenosis of LAD by cath 12/2008.
-Echocardiogram with normal biventricular function and no significant valvular abnormalities.
-On IV heparin drip and was loaded with 600 mg of Plavix last night and received 75 mg of Plavix this morning along with daily baby aspirin. Hemoglobin has been stable with no gross hematuria.
-Recently had right laser lithotripsy, basket extraction of stone fragments from bladder stone December 2024. Would check urine analysis to look for microhematuria
-Some history of noncompliance with medications. He self discontinued Xarelto secondary to hematuria in 2021.
-History of statin intolerance but tolerates Zetia. Strongly consider PCSK9 inhibitors as an outpatient.
- History of hypertension continue lisinopril, amlodipine and atenolol.
-Patient has history remote of PAF and stopped Xarelto on his own due to hematuria in 2021. Remains in SR on review of telemetry and has not had additional documentation of A-fib over the last several years.
- Again, a very extensive lengthy discussion was had with and daughter at bedside and after they have had time to weigh and all of the options that we discussed about yesterday after knowing the results of diagnostic heart catheterization, they
have now decided to proceed this admission two-vessel PCI to LAD and distal RCA as discussed excepting the risk that he may have worsen hematuria on dual antiplatelet therapy and understanding the need for dual antiplatelet therapy uninterrupted. I
went over the details of the risk and benefits of repeat heart catheterization with plan PCI with both daughter and the along with the patient and all are in agreement to proceed this morning.
Total time spent: 52mins
Impression / Plan
-
PCP Tucker Lay
Rda: Dr. Inman
Impression:
Presents 06/18/2025 with bilateral arm pain, belching and chest pain
Elevated troponin, suspect NSTEMI
CAD
s/p NSTEMI 12/27/2008 s/p Xience MEMO to RCA
residual 75% stenosis of mid LAD
Paroxysmal Atrial Fibrillation
self discontinued Xarelto due to hematuria in 2021
HTN
HLD with h/o statin intolerance
Osteoporosis
Hyperparathyroidism
Melanoma
BPH
Nephrolithiasis
History of urosepsis/UTI
s/p Right ureteroscopy with laser lithotripsy, basket extraction of stone fragments, and ureteral stent exchange (12/2024).
Echo 06/05/2022: EF 55 to 60%, no R WMA, mild MR, mild TR, estimated PAP 30 to 43 mmHg
Echo 05/21/2021: EF 55-60%, mild cLVH, mild MR, aortic sclerosis without stenosis, mild TR, estimated PAP 33mmHg
Exercise nuclear stress test 12/26/2018: Completed 5 minutes of Fletcher protocol achieving 6.0 METS. Stress ECG positive for ischemia with 1mm ST depression in II, III, AVF, V5, V6. Perfusion imaging revealed small area of mildly decreased perfusion in
the apical septal segment and apex segment consistent with infarction with residual ischemia. EF 63%.
Plan:
-Presents 06/18/2025 with bilateral arm pain, belching and chest pressure.
-Pain improved with sublingual nitroglycerin x 2.
-EKG demonstrates sinus rhythm with right bundle branch block and nonspecific T wave abnormality in inferior leads and T wave inversion in anterior leads
-Initial troponin 0.043, peak of 2.99 consistent with a type I NSTEMI. He does have history of CAD with MEMO to RCA and residual 75% stenosis of LAD by cath 12/2008.
-Echocardiogram with normal biventricular function and no significant valvular abnormalities.
-On IV heparin drip and was loaded with 600 mg of Plavix last night and received 75 mg of Plavix this morning along with daily baby aspirin. Hemoglobin has been stable with no gross hematuria.
-Recently had right laser lithotripsy, basket extraction of stone fragments from bladder stone December 2024. Would check urine analysis to look for microhematuria
-Some history of noncompliance with medications. He self discontinued Xarelto secondary to hematuria in 2021.
-History of statin intolerance but tolerates Zetia. Strongly consider PCSK9 inhibitors as an outpatient.
- History of hypertension continue lisinopril, amlodipine and atenolol.
-Patient has history remote of PAF and stopped Xarelto on his own due to hematuria in 2021. Remains in SR on review of telemetry and has not had additional documentation of A-fib over the last several years.
- Again, a very extensive lengthy discussion was had with and daughter at bedside and after they have had time to weigh and all of the options that we discussed about yesterday after knowing the results of diagnostic heart catheterization, they
have now decided to proceed this admission two-vessel PCI to LAD and distal RCA as discussed excepting the risk that he may have worsen hematuria on dual antiplatelet therapy and understanding the need for dual antiplatelet therapy uninterrupted. I
went over the details of the risk and benefits of repeat heart catheterization with plan PCI with both daughter and the along with the patient and all are in agreement to proceed this morning.
[facility] 06/18/2025:
Meng is an 89 year old male with PMH of CAD s/p NSTEMI with MEMO to RCA in 2008, PAF, HTN, HLD, and osteoporosis who presented to [facility] ED after awaking with acute episode of bilateral arm pain associated with extreme belching and mild chest
pressure. He took SL NTG x 1 at homewith some improvement and came to hospital. Currently he still has mild bilateral arm pain/chest pressure but denies SOB, diaphoresis, nausea, dizziness, or lightheadedness. He reports he had similar episode in
2021 and ruled in for NSTEMI at the time and was treated with conservative medical management given ongoing hematuria on OAC. On arrival to ED he was provided aspirin 325 mg and additional sublingual nitroglycerin. Patient was noted to have
elevated troponin in emergency department at 0.043, repeat 0.266. EKG demonstrated sinus rhythm with right bundle branch block with nonspecific T wave abnormality in inferior leads and T wave inversion in anterior leads.
He has a history of CAD with MEMO to RCA 12/2008 with residual 75% stenosis of the LAD noted. He is on aspirin as OP. Previously diagnosed with remote atrial fibrillation and stopped anticoagulation on his own as outpatient due to hematuria. He also
has a history of statin intolerance and is only on Zetia for hyperlipidemia.
Progress Note - Rda
Subjective
Date of Service: June 20, 2025
No acute issues overnight
Objective
Labs:
06/20/25 02:31
06/20/25 02:31
Labs
Hgb 13.3 g/dL (13.0-18.0) 06/20/25 02:31
Hct 40.4 % (39.0-52.0) 06/20/25 02:31
Plt Count 273 10^3/uL (130-400) 06/20/25 02:31
APTT 68.5 Sec (23.4-35.0) H 06/19/25 13:01
Sodium 138 mmol/L (135-145) 06/20/25 02:31
Potassium 4.2 mmol/L (3.5-5.1) 06/20/25 02:31
BUN 16 mg/dl (9-20) 06/20/25 02:31
Creatinine 1.1 mg/dL (0.7-1.3) 06/20/25 02:31
Glucose 108 mg/dl (70-99) H 06/20/25 02:31
Troponins
06/18/25 06/18/25 06/18/25
10:05 13:06 21:01
Troponin I 0.043 H* 0.226 H* D 2.970 H* D
06/19/25 06/19/25
05:06 13:01
Troponin I 1.680 H* 0.917 H* D
Vital Signs and I&O:
Vital Signs
Temp Pulse Resp BP Pulse Ox
98.2 F 56 18 149/98 96
06/20/25 07:55 06/20/25 09:11 06/20/25 07:55 06/20/25 09:11 06/20/25 07:56
Vital Signs
Temp Pulse Resp BP Pulse Ox
98.2 F 56 18 149/98 96
06/20/25 07:55 06/20/25 09:11 06/20/25 07:55 06/20/25 09:11 06/20/25 07:56
Intake & Output
06/18/25 06/19/25 06/20/25 06/21/25
06:59 06:59 06:59 06:59
Intake Total 208 / 208 268 / 268
Output Total 325 / 325 1075 / 1075
Balance -117 / -117 -807 / -807
Physical Exam
Physical Exam
heent ncat
jvp 6
cor regular
lungs ctab
abd soft nt nd
no ext edema
aao x3
right radial access site with dressing c/d/i, no hematoma or bruit
--- NOTE | 2025-06-20 13:02 | PTCARENOTE ---
pt back from construction craft laborer. right radial is CDI. pt c/o b/l arm pain. EKG completed. notified dr. warren. no orders at this time. pt also c/o LOUIS, / tylenol given as ordered. pt resting in bed comfortably. pt educated on plan of care. pt verbalized
understanding. at bedside visiting. call cantrell within reach.
--- NOTE | 2025-06-20 14:13 | W.PN.UPDATE ---
Update Note
Progress Note Update
Patient had successful PCI on 06/20/2025 including placement of 2 overlapping 2.75 and 3.5 mm [place] MEMO to the mid to distal LAD and a single 3.5 mm [place] MEMO to the mid RCA. Outpatient dose of aspirin has been continued and patient is new to Plavix
75 mg daily with Rx being E-scribed to his pharmacy by cardiology on 06/20/2025. Cardiology follow-up has been arranged.
--- NOTE | 2025-06-20 19:23 | PTCARENOTE ---
right radial band cdi. no complaints at this time.
[2025-06-20] MEDS: ZETIA 10 MG PO (22:10)
[2025-06-20] MEDS: PROSCAR 5 MG PO (22:10)
[2025-06-21 04:28] VITALS: BP 113/62
[2025-06-21 04:42] VITALS: BMI 21.3
[2025-06-21 05:10] LABS: Hematocrit 37.8 % (39.0-52.0); Hemoglobin 12.8 g/dL (13.0-18.0); Mean Corp Hgb Conc. 33.9 g/dL (33.0-37.0); Mean Corpuscular Volume 88.1 fL (80.0-94.0); Platelet Count 254 10^3/uL (130-400); Red Cell Dist. Width 13.3 % (11.5-14.5)
--- NOTE | 2025-06-21 05:14 | PTCARENOTE ---
Pt SB on monitor with HR 44-58. HR dropped as low as 37 BPM. Pt asleep at that time. VSS. Pt denies any pain or discomfort. Safety measures in place, call cantrell within reach
[2025-06-21 05:31] LABS: Blood Urea Nitrogen 17 mg/dl (9-20); Calcium 10.9 mg/dl (8.4-10.2); Carbon Dioxide 24 mmol/L (22-30); Chloride 107 mmol/L (98-107); Estimated Creatinine Clearance 46 ml/min; Glucose 90 mg/dl (70-99); Potassium 4.1 mmol/L (3.5-5.1); Sodium 136 mmol/L (135-145); eGFR > 60.00
[2025-06-21 07:10] VITALS: BP 122/73
[2025-06-21] MEDS: ASPIR LOW (ENTERIC COATED) 81 MG PO (07:52)
[2025-06-21] MEDS: ZESTRIL 20 MG PO (07:53)
[2025-06-21] MEDS: TENORMIN PO (07:53)
[2025-06-21] MEDS: FLOMAX 0.4 MG PO (07:53)
[2025-06-21] MEDS: NORVASC 2.5 MG PO (07:53)
[2025-06-21] MEDS: PLAVIX 75 MG PO (07:53)
[2025-06-21] MEDS: SENSIPAR 30 MG PO (07:53)
[2025-06-21] MEDS: PROTONIX 40 MG PO (07:53)
[2025-06-21] MEDS: FLUSH (NSS) 1 FLUSH IV (07:53)
--- NOTE | 2025-06-21 08:09 | W.PN.CARDCBS ---
Today's Communication / Plan
-
Stable for discharge to home today status post PCI and stenting yesterday.
Impression / Plan
-
PCP Tucker Lay
Hammerer Tab: Dr. Inman
Impression:
Presents 06/18/2025 with bilateral arm pain, belching and chest pain
Elevated troponin, suspect NSTEMI
CAD
s/p NSTEMI 12/27/2008 s/p [place]ience MEMO to RCA
residual 75% stenosis of mid LAD
Paroxysmal Atrial Fibrillation
self discontinued Xarelto due to hematuria in 2021
HTN
HLD with h/o statin intolerance
Osteoporosis
Hyperparathyroidism
Melanoma
BPH
Nephrolithiasis
History of urosepsis/UTI
s/p Right ureteroscopy with laser lithotripsy, basket extraction of stone fragments, and ureteral stent exchange (12/2024).
Echo 06/05/2022: EF 55 to 60%, no R WMA, mild MR, mild TR, estimated PAP 30 to 43 mmHg
Echo 05/21/2021: EF 55-60%, mild cLVH, mild MR, aortic sclerosis without stenosis, mild TR, estimated PAP 33mmHg
Exercise nuclear stress test 12/26/2018: Completed 5 minutes of Fletcher protocol achieving 6.0 METS. Stress ECG positive for ischemia with 1mm ST depression in II, III, AVF, V5, V6. Perfusion imaging revealed small area of mildly decreased perfusion in
the apical septal segment and apex segment consistent with infarction with residual ischemia. EF 63%.
Plan:
Presented 06/18/2025 with bilateral arm pain, belching and chest pressure -> NSTEMI (peak of troponin 2.99 consistent with a type I NSTEMI). Known CAD with MEMO to RCA and residual 75% stenosis of LAD by cath 12/2008.
-Echocardiogram with normal biventricular function and no significant valvular abnormalities.
-Some history of noncompliance with medications. He self discontinued Xarelto secondary to hematuria in 2021.
-History of statin intolerance but tolerates Zetia. Strongly consider PCSK9 inhibitors as an outpatient.
-successful PCI on 06/20/2025 including placement of 2 overlapping 2.75 and 3.5 mm [place] MEMO to the mid to distal LAD and a single 3.5 mm [place] MEMO to the mid RCA.
Outpatient dose of aspirin has been continued and patient is new to Plavix 75 mg daily with Rx being E-scribed to his pharmacy by cardiology on 06/20/2025.
Cardiology follow-up has been arranged.
Hypertension
-continue lisinopril, amlodipine and atenolol.
There is a remote history of paroxysmal atrial fibrillation.
-He stopped Xarelto on his own due to hematuria in 2021.
-Remains in SR on review of telemetry and has not had additional documentation of A-fib over the last several years.
-Further consideration regarding risk benefit of maintaining him off of anticoagulation and consideration for long-term monitoring to better define if AF present can be done as an outpatient
Post PCI/stenting 06/20/2025 as noted above. Hemoglobin stable, 12.8 today. Renal function and electrolytes also stable. Hemodynamically stable.
Patient is stable for discharge to home today. Discharge instructions reviewed and all of his questions have been answered.
Total discharge time 35 minutes
HPI 06/18/2025:
Meng is an 89 year old male with PMH of CAD s/p NSTEMI with MEMO to RCA in 2008, PAF, HTN, HLD, and osteoporosis who presented to [facility] ED after awaking with acute episode of bilateral arm pain associated with extreme belching and mild chest
pressure. He took SL NTG x 1 at homewith some improvement and came to hospital. Currently he still has mild bilateral arm pain/chest pressure but denies SOB, diaphoresis, nausea, dizziness, or lightheadedness. He reports he had similar episode in
2021 and ruled in for NSTEMI at the time and was treated with conservative medical management given ongoing hematuria on OAC. On arrival to ED he was provided aspirin 325 mg and additional sublingual nitroglycerin. Patient was noted to have
elevated troponin in emergency department at 0.043, repeat 0.266. EKG demonstrated sinus rhythm with right bundle branch block with nonspecific T wave abnormality in inferior leads and T wave inversion in anterior leads.
He has a history of CAD with MEMO to RCA 12/2008 with residual 75% stenosis of the LAD noted. He is on aspirin as OP. Previously diagnosed with remote atrial fibrillation and stopped anticoagulation on his own as outpatient due to hematuria. He also
has a history of statin intolerance and is only on Zetia for hyperlipidemia.
Progress Note - Hammerer Tab
Subjective
Date of Service: June 21, 2025
He tells me he feels well. No chest pain shortness of breath palpitations or dizziness
Objective
Labs:
06/21/25 04:36
06/21/25 04:36
Labs
Hgb 12.8 g/dL (13.0-18.0) L 06/21/25 04:36
Hct 37.8 % (39.0-52.0) L 06/21/25 04:36
Plt Count 254 10^3/uL (130-400) 06/21/25 04:36
APTT 68.5 Sec (23.4-35.0) H 06/19/25 13:01
Sodium 136 mmol/L (135-145) 06/21/25 04:36
Potassium 4.1 mmol/L (3.5-5.1) 06/21/25 04:36
BUN 17 mg/dl (9-20) 06/21/25 04:36
Creatinine 1.1 mg/dL (0.7-1.3) 06/21/25 04:36
Glucose 90 mg/dl (70-99) 06/21/25 04:36
Troponins
06/18/25 06/18/25 06/18/25
10:05 13:06 21:01
Troponin I 0.043 H* 0.226 H* D 2.970 H* D
06/19/25 06/19/25
05:06 13:01
Troponin I 1.680 H* 0.917 H* D
Vital Signs and I&O:
Vital Signs
Temp Pulse Resp BP Pulse Ox
97.6 F 52 18 122/73 96
06/21/25 07:07 06/21/25 07:53 06/21/25 07:07 06/21/25 07:10 06/21/25 07:07
Vital Signs
Temp Pulse Resp BP Pulse Ox
97.6 F 52 18 122/73 96
06/21/25 07:07 06/21/25 07:53 06/21/25 07:07 06/21/25 07:10 06/21/25 07:07
Intake & Output
06/19/25 06/20/25 06/21/25 06/22/25
06:59 06:59 06:59 06:59
Intake Total 208 / 208 268 / 268 650 / 650
Output Total 325 / 325 1075 / 1075 350 / 350
Balance -117 / -117 -807 / -807 300 / 300
Physical Exam
Physical Exam
Well-appearing, no acute distress sitting in chair.
Regular rate and rhythm normal S1 and S2, no S3 no S4 there is grade 1/6 apical holosystolic murmur no rubs
Lungs clear to auscultation bilateral
No clubbing cyanosis or edema
Right wrist (cath site) with dressing that is clean and dry +2 radial pulse no swelling no bleeding
Abdomen soft nontender nondistended, normoactive bowel sounds
Neurologic exam is grossly nonfocal
--- NOTE | 2025-06-21 09:13 | W.PN.HOSP.TC ---
Today's Communication/Plan
-
dc
Assessment / Plan
Assessment / Plan
Physical Exam
General: Comfortable and Conversant
HEENT: Anicteric and Moist mucous membranes.
Respiratory: Clear and Non Labored Respirations
Cardiac: S1/S2 and Regular Rhythm
GI: Soft and Non Distended
Rectal: No bleeding
Musculoskeletal: No Clubbing, No Cyanosis and No Edema
Skin: Warm and Dry
Neuro: Awake, Alert, Oriented and Nonfocal/grossly intact
Psych: Calm
Acute Coronary Syndrome, Non-ST Elevation PA
No chest pain
No sob
Troponin peak at 2.9, trending down
LDL 114, triglycerides 75, total cholesterol 186
-s/p heparin drip
-Continue aspirin & Plavix, Stain
Already on Lisinopril & Atenolol.
-[facility] on by Dr Doshi
Per Dr Doshi report: Reviewed findings of the heart catheterization with patient, and daughter at bedside and had another extensive lengthy discussion in regards to treatment options including medical therapy only which comes with increased
risk for Mace events in the setting of an NSTEMI versus proceeding with PCI to mid LAD in distal RCA reviewing the need for dual antiplatelet therapy with close monitoring of his hematuria and blood counts.
s/p successful PCI on 06/20/2025 including placement of 2 overlapping 2.75 and 3.5 mm [place] MEMO to the mid to distal LAD and a single 3.5 mm [place] MEMO to the mid RCA.
Outpatient dose of aspirin has been continued and patient is new to Plavix 75 mg daily with Rx being E-scribed to his pharmacy by cardiology on 06/20/2025.
Cardiology follow-up has been arranged.
Appreciate cardiology help
# Borderline hypokalemia. Will give oral potassium
# Hypercalcemia. History of
Primary hyperparathyroidism, under care of Dr. Harper, children[facility] ministries director.
Paroxysmal Atrial Fibrillation
-Patient is not on anticoagulation as outpatient
-Continue atenolol
Essential Hypertension
-Continue amlodipine, atenolol
Hyperlipidemia
-Continue ezetimibe
-Check Lipid Panel
-Patient reports intolerance to statins with myalgias
Hyperparathyroidism
-Calcium level appears close to baseline
-Continue cinacalcet
BPH
-Monitor bladder scans
-Continue finasteride and tamsulosin
DVT proph:
Code Status: Full Code
Total discharge time spent to see the patient, examine the patient, review data and lab results, discuss discharge plan with patient, nursing staff around 65 minutes
Anticipated Discharge: Today
Subjective/Interval History
-
Date of Service: June 21, 2025
No chest pain
No sob
No fevers
He feels ready to go home
Objective Data
-
Labs:
Laboratory Results
06/21/25
04:36
WBC 10.0
Hgb 12.8 L
Hct 37.8 L
Plt Count 254
Sodium 136
Potassium 4.1
Chloride 107
Carbon Dioxide 24
BUN 17
Creatinine 1.1
Glucose 90
Calcium 10.9 H
Vital Signs:
Vital Signs
Temp Pulse Resp BP Pulse Ox
97.6 F 52 18 122/73 96
06/21/25 07:07 06/21/25 07:53 06/21/25 07:07 06/21/25 07:10 06/21/25 07:07
I&O
06/20/25 06/21/25 06/22/25
06:59 06:59 06:59
Intake Total 268 / 268 650 / 650
Output Total 1075 / 1075 350 / 350
Balance -807 / -807 300 / 300
--- NOTE | 2025-06-21 09:24 | PTCARENOTE ---
The patient is aaox23. His vital signs are stable. Sinus christiano is noted on the monitor with HRs in the 50s. Atenolol held this morning due to low HR according to the parameters. His right wrist dressing is c/d/i. He has no complaints.
--- NOTE | 2025-06-21 09:52 | W.DCSUMMARY ---
Discharge Summary
Discharge Data
Date of Admission: 06/18/25
Date of Discharge: 06/21/25
-
Pending Results: No
Hospital Course
89 years old male presented with bilateral arm pain. Patient reported pain started in both of his arms with heaviness in arms and that was similar when he needed a heart stent about 10 years. He did not have active chest pain in the hospital.
His troponin came back positive and peaked at 2.9 then trended down to 0.9. EKG was sinus rhythm, right bundle branch block with no acute ischemic changes, T wave inversions noted in the anterior leads. Patient was started on intravenous heparin
with antiplatelet therapy of aspirin and Plavix. He was evaluated by wildlife biostation research ecologist. Echocardiogram showed left ventricular ejection fraction 64%, mild concentric left ventricular hypertrophy, mild to moderate mitral regurgitation with no
significant changes from a prior echocardiogram in May 2023. Intervention wildlife biostation research ecologist did left heart catheterization on June 19 that showed multivessel disease that would require angioplasty. Risk and benefit of repeat cardiac
catheterization with PCI/stenting were discussed with patient, and his family. They accepted the risks including possibility of bleeding from dual antiplatelet therapy. Patient underwent successful angioplasty on June 20 including placement
of 2 overlapping 2.75 and 3.5 mm [place] MEMO to the mid to distal LAD and a single 3.5 mm [place] MEMO to the mid RCA. Patient did not have recurrent chest pain. He was able to ambulate without chest pain or distress. He remained hemodynamically stable
was discharged home in a stable condition.
Discharge Plan
-
Patient Disposition: Home (Routine Discharge)
Discharge Diagnosis/Procedures: Angioplasty and stent x1 to Left Anterior Descending and x1 to Right Coronary arteries
Condition: Good
Diet: Low Fat
Activity: Other activity
Driving Restrictions: No driving for 24 hours
Bathing Restrictions: OK to Shower
Other Services: Cardiac Rehab
Stand Alone Forms: DC Instructions- Cath/EP Lab
Referrals:
Tucker Lay DO [Family Provider, Family Practice]
Annia Elias PA-C [Specified Professional Personl, Cardiology] - 07/09/25 1:00 pm
Additional Discharge Medication Instructions: - Start taking Plavix (clopidogrel) 75 mg daily
- Continue taking aspirin 81 mg daily
Prescriptions:
New
clopidogrel 75 mg Tablet
75 mg PO DAILY Qty: 30 11RF
Continued
tamsulosin 0.4 mg Capsule
0.4 mg PO DAILY
atenolol 50 mg Tablet
50 mg PO DAILY
finasteride 5 mg Tablet
5 mg PO HS
ezetimibe 10 mg Tablet
10 mg PO HS
aspirin [Adult Aspirin Regimen] 81 mg tablet,delayed release (DR/EC)
81 mg PO DAILY Qty: 30 0RF
amlodipine 2.5 mg Tablet
2.5 mg PO DAILY Qty: 30 0RF
pantoprazole 40 mg Tablet,Delayed Release (Dr/Ec)
40 mg PO DAILY Qty: 30 0RF
cinacalcet 30 mg Tablet
30 mg PO DAILY Qty: 30 0RF
acetaminophen 325 mg Tablet
650 mg PO Q4H PRN (Reason: pain)
vitamin B complex Capsule
1 cap PO HS
cholecalciferol (vitamin D3) [Vitamin D3] 50 mcg (2,000 unit) Tablet
100 mcg PO HS
magnesium glycinate 100 mg Tablet
100 mg PO HS
lisinopril 20 mg tablet
20 mg PO DAILY
Discharge Orders:
Discharge Patient (As Directed); Ordered 06/21/25
Ordered By: Josiah Goldsmith
Care Plan Goals
Care Plan Goals:
Problem: Readiness for enhanced knowledge related to diagnosis and treatment plan
Goal: Understand your diagnosis and treatment plan needs, including medications if applicable.
Instructions: Know your diagnosis, underlying causes and treatment plan options, including medications if applicable. Consult with your health care team to learn about your diagnosis and treatment plan, including medications if applicable.
Discharge Date and Time
Discharge Date/Time: 06/21/25 10:43
Print Language: BANGLADESHI
== END 2025-06-21 10:43 | disposition home or self-care (01) | DRG 322 ==
LOC: IVU 13:40
PROVIDERS: Nurse Practitioner; Physician Assistant Medical; ADMITTING PHYSICIAN Internal Medicine; ATTENDING PHYSICIAN Internal Medicine; CONSULT PHYSICIAN Internal Medicine Interventional Cardiology; EMERGENCY PHYSICIAN Emergency Medicine; FAMILY PHYSICIAN Family Medicine
PROC: B2111ZZ Fluoroscopy of Multiple Coronary Arteries using Low Osmolar Contrast (ICD-10-PCS; 2025-06-19)
PROC: 4A023N7 Measurement of Cardiac Sampling and Pressure, Left Heart, Percutaneous Approach (ICD-10-PCS; 2025-06-19)
PROC: 027136Z Dilation of Coronary Artery, Two Arteries with Three Drug-eluting Intraluminal Devices, Percutaneous Approach (ICD-10-PCS; 2025-06-20)
PROC: B241ZZ3 Ultrasonography of Multiple Coronary Arteries, Intravascular (ICD-10-PCS; 2025-06-20)
DX: I21.4 Non-ST elevation (NSTEMI) myocardial infarction (principal); N20.2 Calculus of kidney with calculus of ureter; N39.0 Urinary tract infection, site not specified; I45.10 Unspecified right bundle-branch block; I49.1 Atrial premature depolarization; E78.00 Pure hypercholesterolemia, unspecified; N18.2 Chronic kidney disease, stage 2 (mild); I12.9 Hypertensive chronic kidney disease with stage 1 through stage 4 chronic kidney disease, or unspecified chronic kidney disease; I25.10 Atherosclerotic heart disease of native coronary artery without angina pectoris; N40.0 Benign prostatic hyperplasia without lower urinary tract symptoms; I27.20 Pulmonary hypertension, unspecified; E21.3 Hyperparathyroidism, unspecified; M81.0 Age-related osteoporosis without current pathological fracture; I48.0 Paroxysmal atrial fibrillation; E87.6 Hypokalemia; E21.0 Primary hyperparathyroidism; H91.90 Unspecified hearing loss, unspecified ear; I08.0 Rheumatic disorders of both mitral and aortic valves; R29.6 Repeated falls; I25.2 Old myocardial infarction; Z85.820 Personal history of malignant melanoma of skin; Z79.82 Long term (current) use of aspirin; Z79.899 Other long term (current) drug therapy; Z87.442 Personal history of urinary calculi; Z88.0 Allergy status to penicillin; Z91.148 Patient's other noncompliance with medication regimen for other reason
CPT/HCPCS: 71046; 80048; 80053; 80061; 81003; 81015; 83036; 83735; 84484; 85025; 85027; 85347; 85730; 87086; 92978; 92979; 93005; 93306; 93458; 99152; 99153; 99291; C1725; C1753; C1769; C1874; C1894; C9600; Q9967